=== PATIENT | male | born 1990 | race Caucasian/White ===

== ENCOUNTER 2017-04-12 13:24 | Emergency (ER) | payer MEDICAID ==
[~2017-04-12] VITALS: Ht 172.7 cm; Wt 70.0 kg
[~2017-04-12 13:24] MED LIST: CALA180L2 TOP; CHLO25CA10 PO; DIPH25CA83 PO; FAMO-128 PO; HYDR25CA PO; HYDR28CR14 TOP; LORA-269 PO; NO HOME MEDS; ZOF4T PO
[2017-04-12] MEDS ORDERED: ringers solution, lactated 1000ml IV soln IV ONE ×2 (14:00→14:40)
[2017-04-12] MEDS ORDERED: ondansetron/PF 4mg/2ml inj IV ONE (14:05)
[2017-04-12] MEDS ORDERED: LORazepam 2 mg/ml vial IV ONE ×2 (14:05→14:40)
[2017-04-12 14:11] LABS: BASOPHILS # (AUTO) 0.1 X10'3 (0-0.2); BASOPHILS % (AUTO) 1.4 % (0-1); EOSINOPHILS # (AUTO) 0.4 X10'3 (0-0.9); EOSINOPHILS % (AUTO) 7.2 % (0-6); HEMATOCRIT 45.9 % (42.0-52.0); HEMOGLOBIN 15.7 g/dl (14.0-17.9); LYMPHOCYTES # (AUTO) 1.3 X10'3 (1.1-4.8); LYMPHOCYTES % (AUTO) 23.1 % (21-51); MEAN CORPUSCULAR HEMOGLOBIN 30.5 PG (27.0-31.0); MEAN CORPUSCULAR HGB CONC 34.2 % (33.0-36.5); MEAN CORPUSCULAR VOLUME 89.1 FL (78-98); MEAN PLATELET VOLUME 7.5 FL (7.4-10.4); MONOCYTES # (AUTO) 0.4 X10'3 (0-0.9); MONOCYTES % (AUTO) 7.2 % (2-12); NEUTROPHILS # (AUTO) 3.5 X10'3 (1.8-7.7); NEUTROPHILS % (AUTO) 61.1 % (42-75); PLATELET COUNT 187 X10'3 (140-440); RED BLOOD COUNT 5.16 X10'6 (4.70-6.10); RED CELL DISTRIBUTION WIDTH 13.3 % (11.5-14.5); WHITE BLOOD COUNT 5.7 X10'3 (4.5-11.0)
[2017-04-12 14:18] LABS: PARTIAL THROMBOPLASTIN TIME 25 SECONDS (22-32); PROTHROMBIN TIME 10.2 SECONDS (9.0-12.0)
[2017-04-12 14:32] LABS: ALANINE AMINOTRANSFERASE 227 U/L (12-78); ALBUMIN 4.4 G/DL (3.4-5.0); ALKALINE PHOSPHATASE 86 IU/L (46-116); ANION GAP 12 (8-16); ASPARTATE AMINO TRANSFERASE 223 U/L (10-37); BILIRUBIN,TOTAL 0.7 MG/DL (0.1-1.0); BLOOD UREA NITROGEN 9 MG/DL (7-18); BUN/CREATININE RATIO 8.9 (5.4-32.0); CHLORIDE 100 MMOL/L (99-107); CREATININE 1.01 MG/DL (0.60-1.10); GLUCOSE 113 MG/DL (70-104); SODIUM 142 MMOL/L (135-145); TOTAL CARBON DIOXIDE 30.5 MMOL/L (24-32); eGFR 89 ML/MIN
[2017-04-12 14:46] LABS: MAGNESIUM 2.1 MG/DL (1.5-2.4)
[2017-04-12 15:48] LABS: CLARITY,URINE Clear (Clear); COLOR,URINE Yellow (Yellow); GLUCOSE, URINE Negative (Neg); KETONES,URINE Negative (Neg); LEUKOCYTE ESTERASE ,URINE Negative (Neg); NITRITES, URINE Negative (Neg); OCCULT BLOOD,URINE Negative (Neg); PH,URINE 8.5 (4.8-8.0); PROTEIN,URINE Negative (Neg)
[2017-04-12 15:50] LABS: UA COLLECTION TYPE URINAL
[2017-04-12 15:55] LABS: URINE AMPHETAMINE SCREEN NEGATIVE (Neg); URINE BARBITUATE SCREEN NEGATIVE (Neg); URINE BENZODIAZEPINES SCREEN NEGATIVE (Neg); URINE CANNABINOID SCREEN POSITIVE (Neg); URINE COCAINE SCREEN NEGATIVE (Neg); URINE METHADONE SCREEN NEGATIVE (Neg); URINE OPIATE SCREEN NEGATIVE (Neg); URINE PHENCYCLIDINE SCREEN NEGATIVE (Neg)
[2017-04-12] MEDS ORDERED: ONDA4TAB6 PO (16:42)
[2017-04-12] MEDS ORDERED: CHLO25CA10 PO (16:42)
[2017-04-12 16:56] VITALS: BP 133/59
== END 2017-04-12 16:58 | disposition home or self-care (01) ==
LOC: ER 13:25
DX: F10.230 Alcohol dependence with withdrawal, uncomplicated (principal); F12.10 Cannabis abuse, uncomplicated; Z56.0 Unemployment, unspecified; Y90.9 Presence of alcohol in blood, level not specified
CPT/HCPCS: 36415; 71045; 80053; 80305; 80320; 81003; 83605; 83735; 84145; 84484; 85025; 85610; 85730; 87040; 93005; 96361; 96374; 96375; 96376; 99285; J2060; J2405; J7120

== ENCOUNTER 2017-05-27 16:35 | Emergency (ER) | payer MEDICAID ==
[~2017-05-27] VITALS: Ht 172.7 cm; Wt 81.8 kg
[~2017-05-27 16:35] MED LIST changes: +ONDA4TAB6 PO
[2017-05-27] MEDS ORDERED: phenobarbital inj 260 MG in normal saline 100ml IV soln 99 ML IV STA (16:42)
[2017-05-27] MEDS ORDERED: thiamine 100mg tablet PO ONE (16:45)
[2017-05-27] MEDS ORDERED: magnesium oxide 400mg tablet PO ONE (16:45)
[2017-05-27] MEDS ORDERED: ondansetron/PF 4mg/2ml inj IV ONE (16:45)
[2017-05-27] MEDS ORDERED: normal saline 1000ML IV soln IVB ONE ×2 (16:45→20:30)
[2017-05-27 16:59] LABS: BASOPHILS # (AUTO) 0.1 X10'3 (0-0.2); BASOPHILS % (AUTO) 1.2 % (0-1); EOSINOPHILS # (AUTO) 0.5 X10'3 (0-0.9); EOSINOPHILS % (AUTO) 5.8 % (0-6); HEMATOCRIT 40.8 % (42.0-52.0); HEMOGLOBIN 14.4 g/dl (14.0-17.9); LYMPHOCYTES # (AUTO) 2.6 X10'3 (1.1-4.8); LYMPHOCYTES % (AUTO) 27.3 % (21-51); MEAN CORPUSCULAR HEMOGLOBIN 31.4 PG (27.0-31.0); MEAN CORPUSCULAR HGB CONC 35.4 % (33.0-36.5); MEAN CORPUSCULAR VOLUME 88.8 FL (78-98); MEAN PLATELET VOLUME 7.3 FL (7.4-10.4); MONOCYTES # (AUTO) 0.6 X10'3 (0-0.9); NEUTROPHILS # (AUTO) 5.6 X10'3 (1.8-7.7); NEUTROPHILS % (AUTO) 59.7 % (42-75); PLATELET COUNT 284 X10'3 (140-440); RED BLOOD COUNT 4.59 X10'6 (4.70-6.10); RED CELL DISTRIBUTION WIDTH 15.2 % (11.5-14.5); WHITE BLOOD COUNT 9.4 X10'3 (4.5-11.0)
[2017-05-27 17:23] LABS: ALANINE AMINOTRANSFERASE 45 U/L (12-78); ALBUMIN 4.4 G/DL (3.4-5.0); ALBUMIN/GLOBULIN RATIO 1.3 (1.1-1.5); ALKALINE PHOSPHATASE 71 IU/L (46-116); ANION GAP 14 (8-16); ASPARTATE AMINO TRANSFERASE 51 U/L (10-37); BILIRUBIN,TOTAL 0.9 MG/DL (0.1-1.0); BLOOD UREA NITROGEN 17 MG/DL (7-18); BUN/CREATININE RATIO 17.5 (5.4-32.0); CALCIUM 9.1 MG/DL (8.5-10.1); CHLORIDE 103 MMOL/L (99-107); CREATININE 0.97 MG/DL (0.60-1.10); ETHANOL 0.128 GM/DL (0.0-0.010); GLUCOSE 104 MG/DL (70-104); MAGNESIUM 1.8 MG/DL (1.5-2.4); POTASSIUM 3.8 MMOL/L (3.5-5.1); SODIUM 142 MMOL/L (135-145); TOTAL CARBON DIOXIDE 25.1 MMOL/L (24-32); TOTAL PROTEIN 7.9 G/DL (6.4-8.2); eGFR > 90 ML/MIN
[2017-05-27] MEDS ORDERED: phenobarbital inj 130 MG in normal saline 100ml IV soln 99 ML IV ONE (19:20)
[2017-05-27] MEDS ORDERED: phenobarbital inj 130 MG in normal saline 100ml IV soln 99 ML IV STA (20:27)
[2017-05-27 20:45] LABS: D-DIMER 0.56 MG/L FEU (0-0.50)
[2017-05-27 22:02] VITALS: BP 113/59
== END 2017-05-27 22:03 | disposition home or self-care (01) ==
LOC: ER 16:36
DX: F10.129 Alcohol abuse with intoxication, unspecified (principal); F12.10 Cannabis abuse, uncomplicated; Z56.0 Unemployment, unspecified; Z79.899 Other long term (current) drug therapy; Y90.0 Blood alcohol level of less than 20 mg/100 ml
CPT/HCPCS: 36415; 80053; 80320; 83735; 85025; 85379; 93005; 96365; 96366; 96375; 99285; J2405; J2560; J7030

== ENCOUNTER 2017-11-15 14:21 | Emergency (ER) | payer MEDICAID ==
[~2017-11-15] VITALS: Ht 172.7 cm; Wt 81.8 kg
[2017-11-15] MEDS ORDERED: PENI250T2 PO (15:34)
[2017-11-15] MEDS ORDERED: HYDR-4353 PO (15:34)
[2017-11-15 16:00] VITALS: BP 135/98
== END 2017-11-15 16:02 | disposition home or self-care (01) ==
LOC: ER 14:21
DX: K04.7 Periapical abscess without sinus (principal); F12.90 Cannabis use, unspecified, uncomplicated; Z56.0 Unemployment, unspecified; Z79.899 Other long term (current) drug therapy
CPT/HCPCS: 99283

== ENCOUNTER 2018-02-14 11:18 | Emergency (ER) | payer MEDICAID ==
[~2018-02-14] VITALS: Ht 170.2 cm; Wt 81.2 kg
[2018-02-14 12:46] LABS: BASOPHILS # (AUTO) 0.1 X10'3 (0-0.2); BASOPHILS % (AUTO) 0.7 % (0-1); EOSINOPHILS % (AUTO) 0.1 % (0-6); HEMATOCRIT 45.7 % (42.0-52.0); HEMOGLOBIN 15.1 g/dl (14.0-17.9); LYMPHOCYTES # (AUTO) 1.1 X10'3 (1.1-4.8); LYMPHOCYTES % (AUTO) 12.8 % (21-51); MEAN CORPUSCULAR HEMOGLOBIN 31.2 PG (27.0-31.0); MEAN CORPUSCULAR HGB CONC 33.2 % (33.0-36.5); MEAN CORPUSCULAR VOLUME 94.1 FL (78-98); MONOCYTES # (AUTO) 0.3 X10'3 (0-0.9); MONOCYTES % (AUTO) 3.9 % (2-12); NEUTROPHILS # (AUTO) 6.8 X10'3 (1.8-7.7); NEUTROPHILS % (AUTO) 82.5 % (42-75); PLATELET COUNT 267 X10'3 (140-440); RED BLOOD COUNT 4.86 X10'6 (4.70-6.10); RED CELL DISTRIBUTION WIDTH 13.8 % (11.5-14.5); WHITE BLOOD COUNT 8.3 X10'3 (4.5-11.0)
[2018-02-14 12:47] LABS: CLARITY,URINE CLEAR (Clear); COLOR,URINE YELLOW (Yellow); GLUCOSE, URINE NEGATIVE (Neg); KETONES,URINE 15 mg/dl (Neg); LEUKOCYTE ESTERASE ,URINE NEGATIVE (Neg); NITRITES, URINE NEGATIVE (Neg); OCCULT BLOOD,URINE TRACE-INTACT (Neg); PROTEIN,URINE 30 mg/dl (Neg)
[2018-02-14 12:57] LABS: UA COLLECTION TYPE CLN CATCH MIDSTREAM
[2018-02-14 12:58] LABS: MUCUS STRANDS MODERATE /LPF (Neg); SQUAMOUS EPITHELIAL CELL,UR MODERATE /LPF (FEW)
[2018-02-14 12:59] LABS: BACTERIA,URINE 1+ /HPF (Neg); RBC,URINE 0-2 /HPF (0-2); WBC,URINE 0-4 /HPF (0-4)
[2018-02-14 13:05] LABS: ALANINE AMINOTRANSFERASE 53 U/L (12-78); ALBUMIN 4.9 G/DL (3.4-5.0); ALBUMIN/GLOBULIN RATIO 1.3 (1.1-1.5); ALKALINE PHOSPHATASE 60 IU/L (46-116); ANION GAP 15 (8-16); ASPARTATE AMINO TRANSFERASE 45 U/L (10-37); BILIRUBIN,TOTAL 2.1 MG/DL (0.1-1.0); BLOOD UREA NITROGEN 17 MG/DL (7-18); BUN/CREATININE RATIO 17.2 (5.4-32.0); CALCIUM 8.8 MG/DL (8.5-10.1); CHLORIDE 92 MMOL/L (99-107); CREATININE 0.99 MG/DL (0.60-1.10); GLUCOSE 98 MG/DL (70-104); LIPASE 161 U/L (73-393); POTASSIUM 4.1 MMOL/L (3.5-5.1); SODIUM 132 MMOL/L (135-145); TOTAL CARBON DIOXIDE 24.6 MMOL/L (24-32); TOTAL PROTEIN 8.7 G/DL (6.4-8.2); eGFR > 90 ML/MIN
[2018-02-14 13:06] LABS: INR 1.2 INR; PROTHROMBIN TIME 11.7 SECONDS (9.0-12.0)
[2018-02-14] MEDS ORDERED: chlordiazePOXIDE 25mg capsule PO ONE (13:40)
[2018-02-14] MEDS ORDERED: LORazepam 2 mg/ml vial IV ONE ×2 (13:40→14:50)
[2018-02-14] MEDS ORDERED: normal saline 1000ML IV soln IVB ONE ×2 (13:40→14:50)
--- NOTE | 2018-02-14 13:58 | NUR ---
PT IS 27 YO MALE C/O MUSCLE ACHES, +NAUSEA, FEELING BLOATED, TREMORS, GOING THROUGH ETOH WITHDRAWAL, LAST DRINK WAS LAST NIGHT, DRINKING 2-3 PINTS A DAY FOR THE PAST 2 WEEKS "TRYING TO TAPER OFF...LAST NIGHT I HAD 1/2 PINT", PT IS GCS 15, ALERT, CALM AND COOPERATIVE, SLIGHT TREMORS TO HANDS, RESP EVEN AND UNLABORED, SKIN P/W/D, 1ST LITER NS INFUSING
[2018-02-14] MEDS ORDERED: CHLO25CA10 PO (14:48)
[2018-02-14 16:01] VITALS: BP 108/60
== END 2018-02-14 16:03 | disposition home or self-care (01) ==
LOC: ER 11:19
DX: F10.239 Alcohol dependence with withdrawal, unspecified (principal); F41.9 Anxiety disorder, unspecified; F32.9 Major depressive disorder, single episode, unspecified; F12.90 Cannabis use, unspecified, uncomplicated; Z56.0 Unemployment, unspecified
CPT/HCPCS: 36415; 80053; 81001; 83690; 85025; 85610; 96374; 96376; 99283; J2060; J7030; 96361

== ENCOUNTER 2018-03-16 18:48 | Emergency (ER) | payer MEDICAID ==
[~2018-03-16] VITALS: Ht 172.7 cm; Wt 64.1 kg
[~2018-03-16 18:48] MED LIST changes: -CALA180L2 TOP; -DIPH25CA83 PO; -FAMO-128 PO; -HYDR25CA PO; -HYDR28CR14 TOP; -LORA-269 PO; -NO HOME MEDS; -ONDA4TAB6 PO; -ZOF4T PO
[2018-03-16] MEDS ORDERED: LORazepam 2 mg/ml vial IV ONE (20:40)
[2018-03-16] MEDS ORDERED: normal saline 1000ML IV soln IVB ONE (20:40)
[2018-03-16] MEDS ORDERED: IBUP-1984 PO (20:47)
[2018-03-16] MEDS ORDERED: MELA5TAB12 PO (20:47)
[2018-03-16] MEDS ORDERED: GABA600T13 PO (20:47)
[2018-03-16 20:58] LABS: BASOPHILS # (AUTO) 0.1 X10'3 (0-0.2); BASOPHILS % (AUTO) 0.7 % (0-1); EOSINOPHILS # (AUTO) 0.1 X10'3 (0-0.9); EOSINOPHILS % (AUTO) 0.7 % (0-6); HEMATOCRIT 42.4 % (42.0-52.0); HEMOGLOBIN 14.8 g/dl (14.0-17.9); LYMPHOCYTES # (AUTO) 1.3 X10'3 (1.1-4.8); LYMPHOCYTES % (AUTO) 12.6 % (21-51); MEAN CORPUSCULAR HEMOGLOBIN 32.4 PG (27.0-31.0); MEAN CORPUSCULAR HGB CONC 34.8 g/dL (33.0-36.5); MEAN CORPUSCULAR VOLUME 93.1 FL (78-98); MEAN PLATELET VOLUME 7.7 FL (7.4-10.4); MONOCYTES # (AUTO) 0.6 X10'3 (0-0.9); MONOCYTES % (AUTO) 5.7 % (2-12); NEUTROPHILS # (AUTO) 8.6 X10'3 (1.8-7.7); NEUTROPHILS % (AUTO) 80.3 % (42-75); PLATELET COUNT 202 X10'3 (140-440); RED BLOOD COUNT 4.56 X10'6 (4.70-6.10); RED CELL DISTRIBUTION WIDTH 13.8 % (11.5-14.5); WHITE BLOOD COUNT 10.7 X10'3 (4.5-11.0)
[2018-03-16 21:10] LABS: ALANINE AMINOTRANSFERASE 31 U/L (12-78); ALBUMIN 4.5 G/DL (3.4-5.0); ALBUMIN/GLOBULIN RATIO 1.2 (1.1-1.5); ALKALINE PHOSPHATASE 58 IU/L (46-116); ANION GAP 18 (8-16); ASPARTATE AMINO TRANSFERASE 37 U/L (10-37); BILIRUBIN,TOTAL 1.3 MG/DL (0.1-1.0); BLOOD UREA NITROGEN 12 MG/DL (7-18); BUN/CREATININE RATIO 12.8 (5.4-32.0); CALCIUM 8.8 MG/DL (8.5-10.1); CHLORIDE 93 MMOL/L (99-107); CREATININE 0.94 MG/DL (0.60-1.10); ETHANOL 0.117 GM/DL (0.0-0.010); GLUCOSE 110 MG/DL (70-104); SODIUM 137 MMOL/L (135-145); TOTAL CARBON DIOXIDE 26.5 MMOL/L (24-32); TOTAL PROTEIN 8.2 G/DL (6.4-8.2); eGFR > 90 ML/MIN
[2018-03-16] MEDS ORDERED: potassium Cl 20 mEq SR tablet PO ONE (21:15)
[2018-03-16] MEDS ORDERED: CHLO25CA10 PO (21:28)
[2018-03-16 21:29] VITALS: BP 129/45
[2018-03-16] MEDS ORDERED: metoclopramide 5 mg/ml inj IV ONE (21:45)
== END 2018-03-16 21:57 | disposition home or self-care (01) ==
LOC: ER 18:50
DX: F10.239 Alcohol dependence with withdrawal, unspecified (principal); Y90.9 Presence of alcohol in blood, level not specified; R42 Dizziness and giddiness; R41.0 Disorientation, unspecified; F12.90 Cannabis use, unspecified, uncomplicated; Z79.899 Other long term (current) drug therapy; Z56.0 Unemployment, unspecified
CPT/HCPCS: 36415; 80053; 80320; 85025; 96361; 96374; 96375; 99283; J2060; J2765; J7030

== ENCOUNTER 2018-05-30 19:10 | Emergency (ER) | payer MEDICAID ==
[~2018-05-30] VITALS: Ht 172.7 cm; Wt 66.3 kg
[~2018-05-30 19:10] MED LIST changes: +GABA600T13 PO; +IBUP-1984 PO; +MELA5TAB12 PO
[2018-05-30] MEDS ORDERED: CHLO1CAP PO (20:27)
[2018-05-30] MEDS ORDERED: LORazepam 1 MG tablet PO ONE (20:30)
[2018-05-30 20:43] VITALS: BP 133/96
== END 2018-05-30 20:44 | disposition home or self-care (01) ==
LOC: ER 19:11
DX: F10.239 Alcohol dependence with withdrawal, unspecified (principal); F12.90 Cannabis use, unspecified, uncomplicated; Z56.0 Unemployment, unspecified; Z79.899 Other long term (current) drug therapy; Y90.9 Presence of alcohol in blood, level not specified
CPT/HCPCS: 93005; 99283

== ENCOUNTER 2018-08-17 11:41 | Emergency (ER) | payer MEDICAID ==
[~2018-08-17] VITALS: Ht 172.7 cm; Wt 80.7 kg
[~2018-08-17 11:41] MED LIST changes: +CHLO1CAP PO
[2018-08-17] MEDS ORDERED: normal saline 1000ML IV soln IVB ONE (15:40)
[2018-08-17] MEDS ORDERED: LORazepam 1 MG tablet PO ONE ×2 (15:40→18:25)
[2018-08-17] MEDS ORDERED: ondansetron 4mg rapidly disintigrating tab PO ONE (15:40)
[2018-08-17] MEDS ORDERED: thiamine 100mg/ml 2ml inj. IV ONE (15:40)
[2018-08-17 16:09] LABS: BASOPHILS % (AUTO) 0.2 % (0-1); EOSINOPHILS % (AUTO) 0.6 % (0-6); HEMATOCRIT 45.6 % (42.0-52.0); HEMOGLOBIN 15.4 g/dl (14.0-17.9); LYMPHOCYTES # (AUTO) 1.6 X10'3 (1.1-4.8); LYMPHOCYTES % (AUTO) 24.9 % (21-51); MEAN CORPUSCULAR HEMOGLOBIN 32.5 PG (27.0-31.0); MEAN CORPUSCULAR HGB CONC 33.7 g/dL (33.0-36.5); MEAN CORPUSCULAR VOLUME 96.3 FL (78-98); MEAN PLATELET VOLUME 8.4 FL (7.4-10.4); MONOCYTES # (AUTO) 0.5 X10'3 (0-0.9); NEUTROPHILS # (AUTO) 4.2 X10'3 (1.8-7.7); NEUTROPHILS % (AUTO) 66.3 % (42-75); PLATELET COUNT 233 X10'3 (140-440); RED BLOOD COUNT 4.73 X10'6 (4.70-6.10); RED CELL DISTRIBUTION WIDTH 13.2 % (11.5-14.5); WHITE BLOOD COUNT 6.4 X10'3 (4.5-11.0)
[2018-08-17 16:45] VITALS: BP 125/59
[2018-08-17] MEDS ORDERED: dicyclomine 10 MG capsule PO ONE (16:45)
[2018-08-17] MEDS ORDERED: famotidine 10mg tablet PO STA (16:45)
[2018-08-17] MEDS ORDERED: famotidine 20mg tablet PO ONE (16:55)
[2018-08-17 17:12] LABS: ALANINE AMINOTRANSFERASE 46 U/L (12-78); ALBUMIN 4.2 G/DL (3.4-5.0); ALBUMIN/GLOBULIN RATIO 1.3 (1.1-1.5); ALKALINE PHOSPHATASE 56 IU/L (46-116); ANION GAP 16 (8-16); ASPARTATE AMINO TRANSFERASE 52 U/L (10-37); BILIRUBIN,TOTAL 0.9 MG/DL (0.1-1.0); BLOOD UREA NITROGEN 11 MG/DL (7-18); BUN/CREATININE RATIO 14.7 (5.4-32.0); CALCIUM 8.1 MG/DL (8.5-10.1); CHLORIDE 100 MMOL/L (99-107); CREATININE 0.75 MG/DL (0.60-1.10); GLUCOSE 74 MG/DL (70-104); POTASSIUM 3.6 MMOL/L (3.5-5.1); SODIUM 139 MMOL/L (135-145); TOTAL PROTEIN 7.4 G/DL (6.4-8.2); eGFR > 90 ML/MIN
[2018-08-17] MEDS ORDERED: HYDR-3686 PO (18:14)
[2018-08-17] MEDS ORDERED: ONDA4TAB6 PO (18:14)
[2018-08-17] MEDS ORDERED: DICY10CA88 PO (18:19)
== END 2018-08-17 18:44 | disposition home or self-care (01) ==
LOC: ER 11:41
DX: F10.239 Alcohol dependence with withdrawal, unspecified (principal); R10.84 Generalized abdominal pain; R11.2 Nausea with vomiting, unspecified; R41.0 Disorientation, unspecified; R42 Dizziness and giddiness; F43.10 Post-traumatic stress disorder, unspecified; G89.29 Other chronic pain; F41.9 Anxiety disorder, unspecified; F32.9 Major depressive disorder, single episode, unspecified; F12.90 Cannabis use, unspecified, uncomplicated; Z56.0 Unemployment, unspecified; Z79.899 Other long term (current) drug therapy; Y90.9 Presence of alcohol in blood, level not specified
CPT/HCPCS: 36415; 80053; 85025; 96361; 96374; 99284; J2405; J3411; J7030

== ENCOUNTER 2018-09-12 20:03 | Emergency (ER) | payer MEDICAID ==
[~2018-09-12] VITALS: Ht 172.7 cm; Wt 81.8 kg
[~2018-09-12 20:03] MED LIST changes: +DICY10CA88 PO; +ONDA4TAB6 PO
[2018-09-12 20:10] VITALS: BP 113/83
[2018-09-12] MEDS ORDERED: HYDR-3965 PO (21:23)
[2018-09-12] MEDS ORDERED: AMOX500C2 PO (21:23)
[2018-09-12] MEDS ORDERED: HYDROcodone/acetaminophen 5mg/325mg tablet PO ONE (21:30)
== END 2018-09-12 21:46 | disposition home or self-care (01) ==
LOC: ER 20:05
DX: K08.89 Other specified disorders of teeth and supporting structures (principal); G89.29 Other chronic pain; F41.9 Anxiety disorder, unspecified; F32.9 Major depressive disorder, single episode, unspecified; F10.10 Alcohol abuse, uncomplicated; F12.90 Cannabis use, unspecified, uncomplicated; Z56.0 Unemployment, unspecified; Z79.899 Other long term (current) drug therapy; Y90.9 Presence of alcohol in blood, level not specified
CPT/HCPCS: 99283

== ENCOUNTER 2018-09-15 20:52 | Emergency (ER) | payer MEDICAID ==
[~2018-09-15] VITALS: Ht 172.7 cm; Wt 80.6 kg
[~2018-09-15 20:52] MED LIST changes: +AMOX500C2 PO; +HYDR-3965 PO
[2018-09-15] MEDS ORDERED: diphenhydrAMINE 50 mg/ml inj IV ONE (21:15)
[2018-09-15] MEDS ORDERED: normal saline 1000ML IV soln IVB STA (21:15)
[2018-09-15] MEDS ORDERED: famotidine/PF 10 mg/ml inj IV ONE (21:15)
[2018-09-15 21:36] LABS: EOSINOPHILS # (AUTO) 0.1 X10'3 (0-0.9); LYMPHOCYTES # (AUTO) 2.2 X10'3 (1.1-4.8); MEAN CORPUSCULAR HGB CONC 34.3 g/dL (33.0-36.5); NEUTROPHILS # (AUTO) 2.5 X10'3 (1.8-7.7); PLATELET COUNT 295 X10'3 (140-440)
[2018-09-15 21:37] LABS: BASOPHILS # (AUTO) 0.1 X10'3 (0-0.2); BASOPHILS % (AUTO) 2.7 % (0-1); HEMATOCRIT 43.1 % (42.0-52.0); HEMOGLOBIN 14.8 g/dl (14.0-17.9); LYMPHOCYTES % (AUTO) 39.6 % (21-51); MEAN CORPUSCULAR VOLUME 96.4 FL (78-98); MEAN PLATELET VOLUME 7.7 FL (7.4-10.4); MONOCYTES # (AUTO) 0.6 X10'3 (0-0.9); NEUTROPHILS % (AUTO) 45.7 % (42-75); RED BLOOD COUNT 4.47 X10'6 (4.70-6.10); RED CELL DISTRIBUTION WIDTH 13.9 % (11.5-14.5); WHITE BLOOD COUNT 5.5 X10'3 (4.5-11.0)
[2018-09-15 21:46] LABS: ALANINE AMINOTRANSFERASE 40 U/L (12-78); ALBUMIN 4.4 G/DL (3.4-5.0); ALBUMIN/GLOBULIN RATIO 1.3 (1.1-1.5); ALKALINE PHOSPHATASE 56 IU/L (46-116); ANION GAP 14 (8-16); ASPARTATE AMINO TRANSFERASE 45 U/L (10-37); BILIRUBIN,TOTAL 1.5 MG/DL (0.1-1.0); BLOOD UREA NITROGEN 7 MG/DL (7-18); BUN/CREATININE RATIO 7.2 (5.4-32.0); CALCIUM 8.6 MG/DL (8.5-10.1); CHLORIDE 98 MMOL/L (99-107); CREATININE 0.97 MG/DL (0.60-1.10); ETHANOL 0.054 GM/DL (0.0-0.010); GLUCOSE 97 MG/DL (70-104); MAGNESIUM 1.5 MG/DL (1.5-2.4); POTASSIUM 3.4 MMOL/L (3.5-5.1); SODIUM 139 MMOL/L (135-145); TOTAL CARBON DIOXIDE 27.5 MMOL/L (24-32); TOTAL PROTEIN 7.9 G/DL (6.4-8.2); eGFR > 90 ML/MIN
[2018-09-15] MEDS ORDERED: chlordiazePOXIDE 25mg capsule PO ONE (22:10)
[2018-09-15] MEDS ORDERED: [UNRECOGNIZED DRUG - CODE] PO (22:10)
[2018-09-15] MEDS ORDERED: DIPH25CA83 PO (22:10)
[2018-09-15 22:13] VITALS: BP 122/80
--- NOTE | 2018-09-15 22:17 | NUR ---
MD BLACKWELL AWARE OF PT TREMORS AND HEARTRATE AT DISCHARGE.
[2018-09-15] MEDS: chlordiazePOXIDE 25mg capsule PO ONE ×2 (22:19→22:22)
== END 2018-09-15 22:25 | disposition home or self-care (01) ==
LOC: ER 20:54
DX: T78.40XA Allergy, unspecified, initial encounter (principal); K08.89 Other specified disorders of teeth and supporting structures; J02.9 Acute pharyngitis, unspecified; F10.239 Alcohol dependence with withdrawal, unspecified; G89.29 Other chronic pain; F41.9 Anxiety disorder, unspecified; F32.9 Major depressive disorder, single episode, unspecified; F12.90 Cannabis use, unspecified, uncomplicated; Z56.0 Unemployment, unspecified; Z79.899 Other long term (current) drug therapy; X58.XXXA Exposure to other specified factors, initial encounter; Y93.89 Activity, other specified; Y92.89 Other specified places as the place of occurrence of the external cause; Y99.8 Other external cause status; Y90.0 Blood alcohol level of less than 20 mg/100 ml
CPT/HCPCS: 36415; 80053; 80320; 83605; 83735; 85025; 87040; 96374; 96375; 99283; J1200; J3490; J7030

== ENCOUNTER 2020-02-01 15:13 | Emergency (ER) | payer MEDICAID ==
[~2020-02-01 15:13] MED LIST changes: -AMOX500C2 PO; +CYCL-1 PO; +DIPH25CA83 PO; -HYDR-3965 PO; +NAPR-56 PO
== END 2020-02-01 16:38 | disposition left against medical advice (07) ==
LOC: ER 15:14
DX: M54.5 Low back pain (principal); Z53.21 Procedure and treatment not carried out due to patient leaving prior to being seen by health care provider

== ENCOUNTER 2020-02-13 10:20 | Emergency (ER) | payer MEDICAID ==
[~2020-02-13] VITALS: Ht 172.7 cm; Wt 91.0 kg
[2020-02-13 12:21] VITALS: BP 122/88
[2020-02-13] MEDS ORDERED: oxyCODONE IR 5mg (immed. release) tablet PO ONE (12:35)
[2020-02-13] MEDS ORDERED: HYDR-4353 PO (13:44)
== END 2020-02-13 13:57 | disposition home or self-care (01) ==
LOC: ER 10:22
DX: S22.20XA Unspecified fracture of sternum, initial encounter for closed fracture (principal); S00.81XA Abrasion of other part of head, initial encounter; R07.89 Other chest pain; G89.29 Other chronic pain; F41.9 Anxiety disorder, unspecified; F32.9 Major depressive disorder, single episode, unspecified; F12.90 Cannabis use, unspecified, uncomplicated; Z72.89 Other problems related to lifestyle; Z56.0 Unemployment, unspecified; Z88.1 Allergy status to other antibiotic agents; Z79.899 Other long term (current) drug therapy; V89.2XXA Person injured in unspecified motor-vehicle accident, traffic, initial encounter; Y93.89 Activity, other specified; Y92.89 Other specified places as the place of occurrence of the external cause; Y99.8 Other external cause status
CPT/HCPCS: 71120; 99283

== ENCOUNTER 2020-02-15 17:03 | Emergency (ER) | payer MEDICAID ==
[~2020-02-15] VITALS: Ht 172.7 cm; Wt 90.9 kg
[~2020-02-15 17:03] MED LIST changes: +HYDR-4353 PO
[2020-02-15 17:21] VITALS: BP 138/102
== END 2020-02-15 18:09 | disposition left against medical advice (07) ==
LOC: ER 17:05
DX: R06.02 Shortness of breath (principal); Z53.21 Procedure and treatment not carried out due to patient leaving prior to being seen by health care provider

== ENCOUNTER 2020-03-13 01:00 | Emergency (ER) | payer MEDICAID ==
[~2020-03-13] VITALS: Ht 172.7 cm; Wt 93.2 kg
[~2020-03-13 01:00] MED LIST changes: -HYDR-4353 PO; -NAPR-56 PO
[2020-03-13] MEDS ORDERED: magnesium oxide 400mg tablet PO ONE (01:50)
[2020-03-13] MEDS ORDERED: thiamine 100mg tablet PO ONE (01:50)
[2020-03-13] MEDS ORDERED: phenobarbital inj 260 MG in normal saline 100ml IV soln 100 ML IV ONE (01:50)
[2020-03-13] MEDS ORDERED: normal saline 1000ML IV soln IVB ONE (01:50)
[2020-03-13] MEDS ORDERED: phenobarbital inj 260 MG in normal saline 100ml IV soln 98 ML IV ONE (02:00)
[2020-03-13 02:28] LABS: BASOPHILS # (AUTO) 0.1 X10'3 (0-0.2); BASOPHILS % (AUTO) 1.2 % (0-1); EOSINOPHILS # (AUTO) 0.4 X10'3 (0-0.9); EOSINOPHILS % (AUTO) 4.6 % (0-6); HEMATOCRIT 40.6 % (42.0-52.0); HEMOGLOBIN 14.1 g/dl (14.0-17.9); LYMPHOCYTES # (AUTO) 2.6 X10'3 (1.1-4.8); LYMPHOCYTES % (AUTO) 33.5 % (21-51); MEAN CORPUSCULAR HEMOGLOBIN 30.6 PG (27.0-31.0); MEAN CORPUSCULAR HGB CONC 34.7 g/dL (33.0-36.5); MEAN CORPUSCULAR VOLUME 88.3 FL (78-98); MEAN PLATELET VOLUME 7.7 FL (7.4-10.4); MONOCYTES # (AUTO) 0.6 X10'3 (0-0.9); MONOCYTES % (AUTO) 8.2 % (2-12); NEUTROPHILS # (AUTO) 4.1 X10'3 (1.8-7.7); NEUTROPHILS % (AUTO) 52.5 % (42-75); PLATELET COUNT 200 X10'3 (140-440); RED CELL DISTRIBUTION WIDTH 12.8 % (11.5-14.5); WHITE BLOOD COUNT 7.8 X10'3 (4.5-11.0)
[2020-03-13 02:43] LABS: ANION GAP 9 (8-16); BLOOD UREA NITROGEN 22 MG/DL (7-18); BUN/CREATININE RATIO 19.1 (5.4-32.0); CALCIUM 7.8 MG/DL (8.5-10.1); CHLORIDE 97 MMOL/L (99-107); CREATININE 1.15 MG/DL (0.60-1.10); GLUCOSE 104 MG/DL (70-104); POTASSIUM 3.3 MMOL/L (3.5-5.1); SODIUM 134 MMOL/L (135-145); TOTAL CARBON DIOXIDE 28.1 MMOL/L (24-32); eGFR 75 ML/MIN
[2020-03-13 02:44] LABS: ALANINE AMINOTRANSFERASE 37 U/L (12-78); ALBUMIN/GLOBULIN RATIO 1.1 (1.1-1.5); ALKALINE PHOSPHATASE 86 IU/L (46-116); ASPARTATE AMINO TRANSFERASE 46 U/L (10-37); BILIRUBIN,TOTAL 1.2 MG/DL (0.1-1.0); ETHANOL < 0.010 GM/DL (0.0-0.010); MAGNESIUM 1.6 MG/DL (1.5-2.4); TOTAL PROTEIN 7.5 G/DL (6.4-8.2)
[2020-03-13] MEDS ORDERED: phenobarbital inj 130 MG in normal saline 100ml IV soln 100 ML IV ONE (03:15)
[2020-03-13] MEDS ORDERED: phenobarbital inj 130 MG in normal saline 100ml IV soln 99 ML IV ONE (03:20)
--- NOTE | 2020-03-13 03:43 | NUR ---
2nd dose of Phenobarbital ivpb infusing now. Pt is a&ox4 and cooperative. Reports pain to his sternum 8 out of 10 and abd pain of 3 out of 10. Reports he is used to this pain now. Current vss.
[2020-03-13 04:30] VITALS: BP 123/84
== END 2020-03-13 04:39 | disposition home or self-care (01) ==
LOC: ER 01:01
DX: F10.239 Alcohol dependence with withdrawal, unspecified (principal); G89.29 Other chronic pain; F41.9 Anxiety disorder, unspecified; F12.90 Cannabis use, unspecified, uncomplicated; F32.9 Major depressive disorder, single episode, unspecified; Z72.89 Other problems related to lifestyle; Z56.0 Unemployment, unspecified; Z88.1 Allergy status to other antibiotic agents; Z79.899 Other long term (current) drug therapy; Y90.0 Blood alcohol level of less than 20 mg/100 ml
CPT/HCPCS: 36415; 80053; 80320; 82948; 83735; 85025; 93005; 96365; 96366; 99284; J2560; J7030

== ENCOUNTER 2020-08-05 21:51 | Emergency (ER) | payer MEDICAID ==
[~2020-08-05] VITALS: Ht 172.7 cm; Wt 96.6 kg
[2020-08-05] MEDS ORDERED: pregabalin 75mg capsule PO ONE (23:35)
[2020-08-05] MEDS ORDERED: chlordiazePOXIDE 25mg capsule PO ONE (23:35)
[2020-08-05] MEDS ORDERED: gabapentin 300mg capsule PO ONE (23:35)
[2020-08-05] MEDS ORDERED: gabapentin 100mg capsule PO ONE (23:35)
[2020-08-05] MEDS ORDERED: GABA-534 PO (23:51)
[2020-08-06 00:17] VITALS: BP 132/90
== END 2020-08-06 00:29 | disposition home or self-care (01) ==
LOC: ER 21:52
DX: F10.239 Alcohol dependence with withdrawal, unspecified (principal); F41.9 Anxiety disorder, unspecified; R25.1 Tremor, unspecified; E86.0 Dehydration; R19.7 Diarrhea, unspecified; G89.29 Other chronic pain; F32.9 Major depressive disorder, single episode, unspecified; F12.90 Cannabis use, unspecified, uncomplicated; Z72.89 Other problems related to lifestyle; Z56.0 Unemployment, unspecified; Z88.1 Allergy status to other antibiotic agents; Z79.899 Other long term (current) drug therapy; Y90.9 Presence of alcohol in blood, level not specified
CPT/HCPCS: 99284

== ENCOUNTER 2020-08-06 10:23 | Emergency (ER) | payer MEDICAID ==
[~2020-08-06] VITALS: Ht 172.7 cm; Wt 91.8 kg
[~2020-08-06 10:23] MED LIST changes: +GABA-534 PO
[2020-08-06] MEDS ORDERED: thiamine 100mg tablet PO ONE (11:05)
[2020-08-06] MEDS ORDERED: LORazepam 2 mg/ml vial IV ONE (11:05)
[2020-08-06] MEDS ORDERED: normal saline 1000ml 1,000 ML IV ONE (11:05)
[2020-08-06] MEDS ORDERED: ondansetron/PF 4mg/2ml inj IV ONE (11:05)
[2020-08-06 11:44] VITALS: BP 149/88
[2020-08-06 11:52] LABS: ALANINE AMINOTRANSFERASE 56 U/L (12-78); ALBUMIN 4.5 G/DL (3.4-5.0); ALBUMIN/GLOBULIN RATIO 1.3 (1.1-1.5); ALKALINE PHOSPHATASE 57 IU/L (46-116); ANION GAP 12 (8-16); ASPARTATE AMINO TRANSFERASE 62 U/L (10-37); BILIRUBIN,TOTAL 2.1 MG/DL (0.1-1.0); BLOOD UREA NITROGEN 9 MG/DL (7-18); BUN/CREATININE RATIO 10.2 (5.4-32.0); CALCIUM 8.3 MG/DL (8.5-10.1); CHLORIDE 98 MMOL/L (99-107); CREATININE 0.88 MG/DL (0.60-1.10); GLUCOSE 88 MG/DL (70-104); POTASSIUM 3.5 MMOL/L (3.5-5.1); SODIUM 136 MMOL/L (135-145); TOTAL CARBON DIOXIDE 26.3 MMOL/L (24-32); TOTAL PROTEIN 8.1 G/DL (6.4-8.2); eGFR > 90 ML/MIN
[2020-08-06 11:59] LABS: ETHANOL < 0.010 GM/DL (0.0-0.010)
[2020-08-06] MEDS ORDERED: iohexol 300mg/ml 100ml inj. ONE (12:30)
[2020-08-06 12:55] LABS: LIPASE 184 U/L (73-393)
[2020-08-06 13:05] LABS: BASOPHILS # (AUTO) 0.1 X10'3 (0-0.2); EOSINOPHILS # (AUTO) 0.3 X10'3 (0-0.9); HEMATOCRIT 38.5 % (42.0-52.0); HEMOGLOBIN 13.1 g/dl (14.0-17.9); LYMPHOCYTES # (AUTO) 0.9 X10'3 (1.1-4.8); LYMPHOCYTES % (AUTO) 16.1 % (21-51); MEAN CORPUSCULAR HEMOGLOBIN 32.3 PG (27.0-31.0); MEAN CORPUSCULAR HGB CONC 33.9 g/dL (33.0-36.5); MEAN CORPUSCULAR VOLUME 95.3 FL (78-98); MONOCYTES # (AUTO) 0.3 X10'3 (0-0.9); MONOCYTES % (AUTO) 5.7 % (2-12); NEUTROPHILS # (AUTO) 4.1 X10'3 (1.8-7.7); NEUTROPHILS % (AUTO) 72.2 % (42-75); PLATELET COUNT 106 X10'3 (140-440); RED BLOOD COUNT 4.04 X10'6 (4.70-6.10); RED CELL DISTRIBUTION WIDTH 14.5 % (11.5-14.5); WHITE BLOOD COUNT 5.7 X10'3 (4.5-11.0)
[2020-08-06] MEDS ORDERED: mag hydrox/Alum hydrox/simeth 30ml oral suspension PO ONE (13:35)
[2020-08-06] MEDS ORDERED: chlordiazePOXIDE 25mg capsule PO ONE (13:35)
== END 2020-08-06 13:57 | disposition home or self-care (01) ==
LOC: ER 10:24
DX: F10.239 Alcohol dependence with withdrawal, unspecified (principal); R10.84 Generalized abdominal pain; F41.9 Anxiety disorder, unspecified; F32.9 Major depressive disorder, single episode, unspecified; F12.10 Cannabis abuse, uncomplicated; Z56.0 Unemployment, unspecified; Z88.1 Allergy status to other antibiotic agents; Y90.9 Presence of alcohol in blood, level not specified
CPT/HCPCS: 36415; 74177; 80053; 80320; 83690; 83735; 85025; 96361; 96374; 96375; 99285; J2060; J2405; J7030; Q9967; 74176; 96376

== ENCOUNTER 2021-07-03 14:15 | Emergency (ER) | payer MEDICAID ==
[~2021-07-03] VITALS: Ht 172.7 cm; Wt 104.5 kg
[2021-07-03 15:33] LABS: CLARITY,URINE CLEAR (Clear); COLOR,URINE YELLOW (Yellow); GLUCOSE, URINE NEGATIVE (Neg); KETONES,URINE NEGATIVE (Neg); LEUKOCYTE ESTERASE ,URINE NEGATIVE (Neg); NITRITES, URINE NEGATIVE (Neg); OCCULT BLOOD,URINE NEGATIVE (Neg); PROTEIN,URINE NEGATIVE (Neg); UROBILINOGEN,URINE 0.2 E.U/dL (0.2-1.0)
[2021-07-03 15:35] LABS: BASOPHILS # (AUTO) 0.1 X10'3 (0-0.2); BASOPHILS % (AUTO) 1.2 % (0-1); EOSINOPHILS % (AUTO) 0.8 % (0-6); HEMATOCRIT 41.7 % (42.0-52.0); HEMOGLOBIN 14.6 g/dl (14.0-17.9); LYMPHOCYTES # (AUTO) 2.4 X10'3 (1.1-4.8); LYMPHOCYTES % (AUTO) 38.5 % (21-51); MEAN CORPUSCULAR HEMOGLOBIN 30.4 PG (27.0-31.0); MEAN CORPUSCULAR HGB CONC 34.9 g/dL (33.0-36.5); MEAN PLATELET VOLUME 7.7 FL (7.4-10.4); MONOCYTES # (AUTO) 0.4 X10'3 (0-0.9); MONOCYTES % (AUTO) 7.1 % (2-12); NEUTROPHILS # (AUTO) 3.3 X10'3 (1.8-7.7); NEUTROPHILS % (AUTO) 52.4 % (42-75); PLATELET COUNT 290 X10'3 (140-440); RED CELL DISTRIBUTION WIDTH 12.6 % (11.5-14.5); WHITE BLOOD COUNT 6.2 X10'3 (4.5-11.0)
[2021-07-03 15:36] LABS: UA COLLECTION TYPE VOIDED
[2021-07-03 15:40] LABS: ALANINE AMINOTRANSFERASE 54 U/L (12-78); ALBUMIN 4.2 G/DL (3.4-5.0); ALBUMIN/GLOBULIN RATIO 1.3 (1.1-1.5); ALKALINE PHOSPHATASE 76 IU/L (46-116); ANION GAP 14 (8-16); ASPARTATE AMINO TRANSFERASE 48 U/L (10-37); BILIRUBIN,TOTAL 1.1 MG/DL (0.1-1.0); BLOOD UREA NITROGEN 9 MG/DL (7-18); BUN/CREATININE RATIO 10.6 (5.4-32.0); CALCIUM 8.5 MG/DL (8.5-10.1); CHLORIDE 99 MMOL/L (99-107); CREATININE 0.85 MG/DL (0.60-1.10); GLUCOSE 110 MG/DL (70-104); LIPASE 73 U/L (73-393); POTASSIUM 3.4 MMOL/L (3.5-5.1); SODIUM 141 MMOL/L (135-145); TOTAL CARBON DIOXIDE 27.7 MMOL/L (24-32); TOTAL PROTEIN 7.5 G/DL (6.4-8.2); eGFR > 90 ML/MIN
[2021-07-03] MEDS ORDERED: LORazepam 2 mg/ml vial IV ONE (19:05)
[2021-07-03] MEDS ORDERED: normal saline 1000ML IV soln IVB ONE (19:05)
[2021-07-03] MEDS ORDERED: morphine 4 MG/ML inj SYRINge IV ONE (19:05)
[2021-07-03 19:34] LABS: CHOL/HDL RATIO 2.4 (0.00-4.99); CHOLESTEROL 173 MG/DL (0-200); ETHANOL 0.094 GM/DL (0.0-0.010); HDL CHOLESTEROL 72 MG/DL (35-60); LDL CHOLESTEROL 89 MG/DL (50-100); TRIGLYCERIDES 91 MG/DL (20-135)
[2021-07-03] MEDS ORDERED: LORA-269 PO (20:38)
[2021-07-03] MEDS ORDERED: GABA-534 PO (20:48)
[2021-07-03 21:02] VITALS: BP 115/98
== END 2021-07-03 21:03 | disposition home or self-care (01) ==
LOC: ER 14:16
DX: S93.402A Sprain of unspecified ligament of left ankle, initial encounter (principal); F10.230 Alcohol dependence with withdrawal, uncomplicated; R10.9 Unspecified abdominal pain; G89.29 Other chronic pain; M54.9 Dorsalgia, unspecified; F41.9 Anxiety disorder, unspecified; F32.A Depression, unspecified; F12.10 Cannabis abuse, uncomplicated; Z56.0 Unemployment, unspecified; Z88.1 Allergy status to other antibiotic agents; Z79.899 Other long term (current) drug therapy; X50.0XXA Overexertion from strenuous movement or load, initial encounter; Y93.89 Activity, other specified; Y92.89 Other specified places as the place of occurrence of the external cause; Y99.8 Other external cause status
CPT/HCPCS: 36415; 71045; 73610; 74176; 80053; 80061; 80320; 81003; 83690; 84484; 85025; 96374; 96375; 99285; J2060; J2270; J7030

== ENCOUNTER 2024-12-23 12:18 | Inpatient (IN) | payer MEDICAID ==
[~2024-12-23] VITALS: Ht 172.7 cm; Wt 89.9 kg
[~2024-12-23 12:18] MED LIST changes: +GABA-1405 PO; -GABA-534 PO; +GABA-535 PO; -GABA600T13 PO
--- NOTE | 2024-12-23 12:36 | Physician Documentation ---
History of Present Illness General Chief Complaint: Back Pain Stated Complaint: PAIN IN BUTTOX GOING DOWN INTO LEGS Time Seen by MD: 12:35 Primary Medical Doctor: ARIAN LEONG History of Present Illness Initial Comments The patient is a 34-year-old male presents to the emergency department with back pain and difficulty ambulating. Patient states he did a work job on Monday he states he commonly gets back pain after doing his work. The patient states he felt like he was sore yesterday, he states he developed some difficulty ambulating with a an unsteady gait shortly after doing the job on Monday night which was two days ago.. The patient has no other history of being unsteady when he ambulates in the past. He denies any trauma. The patient states he has had chronic back pain but he has never had this level of weakness and unsteadiness he also complains of pain in his buttocks he states the buttocks pain is the worst 8/10 he states he has had constipation he has not had any bowel incontinence or bladder incontinence. The patient states he occasionally drinks he states he drank two drinks last night. Medication Reconciliation Allergies: Coded Allergies: doxycycline (Verified Allergy, Severe, THROAT SWELLING, 12/23/24) Scheduled Dicyclomine Hcl* (Bentyl*), 1 CAP PO TID Famotidine (Famotidine), 1 TAB PO DAILY, (Reported) Ibuprofen* (Motrin*), 1 TAB PO Q6H PRN, (Reported) Miscellaneous Medications Ibuprofen (Ibuprofen), (Reported) Discontinued Medications Chlordiazepoxide Hcl (Librium), 25 MG PO DIRECTED Discontinued Reason: patient no longer taking Chlordiazepoxide/Clidinium Br (Librax Capsule), 1 CAP PO Q8H PRN for for anxiety/agitation Discontinued Reason: patient no longer taking Cyclobenzaprine* (Cyclobenzaprine*), 1 TAB PO HS Discontinued Reason: patient no longer taking Diphenhydramine Hcl (Benadryl), 25 MG PO TID PRN PRN for allergies Discontinued Reason: patient no longer taking Gabapentin (Gabapentin), 1,200 MG PO BID, (Reported) Discontinued Reason: patient no longer taking Gabapentin (Gabapentin), 1 CAP PO as directed Discontinued Reason: patient no longer taking Gabapentin (Gabapentin), 1 CAP PO BID Discontinued Reason: patient no longer taking Melatonin (Melatonin), 5 MG PO HSPRN PRN for sleep, (Reported) Discontinued Reason: patient no longer taking Ondansetron Hcl (Zofran), 1 TAB PO Q8H Discontinued Reason: patient no longer taking Past Medical History Past Medical History: Gastritis, Chronic Back Pain, *PSYCH*, Anxiety, Depression Past Surgical History: noncontributory, orthopedic surgeries Smoking: Cigarettes Alcohol Use: Alcoholic Drug Use: marijuana Lives with: Mother Lives In: Home Occupation: unemployed Physical Exam Physical Exam Vital Signs: Temperature: 98.5, Source: Oral, Heart Rate: 117, Respiratory Rate: 16, BP: 142/91, Pulse Oximetry: 100, Weight: 89.900 Oxygen Flow Rate: 0 Physical Exam VITALS: Reviewed and as above. GENERAL: Alert, no apparent distress. HEENT: Normocephalic, atraumatic, PERRL, EOMI, dry mucosa, no erythema RESPIRATORY: Lungs clear, normal breath sounds, no respiratory distress. CHEST: No accessory muscle use, no retractions CV: Regular rate, rhythm, no edema, no murmur, No: JVD GI: Soft, non-tender, bowels sounds present, no rebound, guarding, or rigidity BACK: No CVA tenderness, or swelling MUSCULOSKELETAL: No deformities, no edema SKIN: Warm and dry, no rash NEURO: Oriented x4, patient has a ataxia on [id number] testing, he also has a shuffling ataxic gait. His upper and lower motor strength are 5/5 he has no upper extremity ataxia or abnormal cerebellar testing patient has 3+ patellar reflexes bilaterally PSYCH: Normal mood and affect, no agitation Progress Results/Orders Results/Orders Orders - OHLMILAGROS DANEILS MD Vitamin B12 (12/23/24 13:00) Eugenio Saenz Prov.Neuro Consult (12/23/24 13:06) Page Hospitalist (12/23/24 ) Completed Orders - OHMILAGROS WHEAT MD Cbc/Diff (12/23/24 12:53) Urinalysis, Cult If Indicated (12/23/24 12:53) Normal Saline 1000ml (0.9% Sodium Chlori (12/23/24 12:55) BMP (12/23/24 12:53) Syphilis Screen Poc (12/23/24 13:01) Ketorolac Trometh 15mg/Ml Vial (Toradol (12/23/24 13:10) CK (12/23/24 13:22) C-Reactive Protein (12/23/24 13:22) Vital Signs 12/23/24 12/23/24 12/23/24 12/23/24 12:20 13:43 13:56 14:22 Temp 98.5 97.6 Pulse 117 76 Resp 16 18 20 18 B/P (MAP) 142/91 139/86 (103) Pulse Ox 100 99 O2 Flow Rate 0 0 Laboratory Tests Test 12/23/24 13:22 White Blood Count 6.3 Red Blood Count 4.64 L Hemoglobin 14.0 Hematocrit 40.8 L Mean Corpuscular Volume 87.9 Mean Corpuscular Hemoglobin 30.2 Mean Corpuscular Hemoglobin Concent 34.3 Red Cell Distribution Width 13.8 Platelet Count 294 Mean Platelet Volume 7.8 Neutrophils (%) (Auto) 59.5 Lymphocytes (%) (Auto) 28.6 Monocytes (%) (Auto) 6.2 Eosinophils (%) (Auto) 4.3 Basophils (%) (Auto) 1.4 H Neutrophils # (Auto) 3.8 Lymphocytes # (Auto) 1.8 Monocytes # (Auto) 0.4 Eosinophils # (Auto) 0.3 Basophils # (Auto) 0.1 CBC Comment Erythrocyte Sedimentation Rate 4 Sodium Level 140 Potassium Level 4.1 Chloride Level 103 Carbon Dioxide Level 27.5 Anion Gap 10 Blood Urea Nitrogen 9 Creatinine 0.78 Estimated GFR/1.73 m2 > 90 BUN/Creatinine Ratio 11.5 Glucose Level 100 Calcium Level 9.0 Total Creatine Kinase 139 C-Reactive Protein < 0.05 Albumin 4.3 Chemistry Comments Syphilis Serology Negative Medical Decision Making Additional information obtaine: old records Findings The patient presents with neurologic symptoms of gait instability and lower leg ataxia and hyperreflexia, the patient was seen by tele neurology, the patient was complaining of significant buttocks pain and a CPK was ordered but that was within normal limits. They tele neurologist his recommended MRIs imaging of the spine and of the brain as the differential is fairly wide at this point with the patient with new onset of gait ataxia. Labs were reviewed. Prior hospitalizations has been reviewed. Case has been discussed with the hospitalist as well as the neurologists. The patient's pulse oximetry was interpreted as normal Differential Diagnosis B12 deficiency, Guillain-Bud, encephalitis, myelitis, Departure Impression: Primary Impression: Gait disorder Additional Impression: Low back pain Qualified Codes: M54.50 - Low back pain, unspecified Referrals: NO PRIMARY CARE PROVIDER (PCP) Signature Scribe Signature: No scribe Attestation: The note accurately reflects work and decisions made by me.Milagros Araya MD 12/24/24 09:33 MILAGROS ARAYA MD Dec 23, 2024 12:36
[2024-12-23] MEDS: normal saline 1000ML IV soln IVB ONE (13:22)
[2024-12-23 13:31] LABS: MEAN PLATELET VOLUME 7.8 FL (7.4-10.4); RED CELL DISTRIBUTION WIDTH 13.8 % (11.5-14.5)
[2024-12-23 13:42] LABS: CREATININE 0.78 MG/DL (0.60-1.10); TOTAL CARBON DIOXIDE 27.5 MMOL/L (24-32); eCRCL 129 ML/MIN; eGFR > 90 ML/MIN
[2024-12-23] MEDS: ketorolac trometh 15mg/ml vial 15 MG/ML ML IV ONE (13:43)
--- NOTE | 2024-12-23 13:49 | CONSULTATION REPORT ---
History of Present Illness Providers to CC ~ Refering MD: ARIAN LEONG Allergies: Coded Allergies: doxycycline (Verified Allergy, Severe, THROAT SWELLING, 03/13/20) Home Medications Home Medications Active Gabapentin 400 Mg Capsule 1 Cap PO BID 15 Days Gabapentin 400 Mg Capsule 1 Cap PO DIRECTED 1 capsule 4 times a day on day #1, 1 capsule 3 times a day on day #2 1 capsule 2 times a day on day #3 1 capsule x1 on day #4 Cyclobenzaprine* (Cyclobenzaprine HCl) 10 Mg Tablet 1 Tab PO HS 30 Days Benadryl (Diphenhydramine Hcl) 25 Mg Capsule 25 Mg PO TID PRN PRN Bentyl* (Dicyclomine HCl) 10 Mg Capsule 1 Cap PO TID 5 Days Zofran (Ondansetron Hcl) 4 Mg Tablet 1 Tab PO Q8H 5 Days Librax Capsule (Chlordiazepoxide/Clidinium) 1 Each Capsule 1 Cap PO Q8H PRN 5 Days Librium (Chlordiazepoxide Hcl) 25 Mg Capsule 25 Mg PO DIRECTED Day 1: 50mg every 6 hours as needed for symptoms Day 2: 50mg every 8 hours as needed for symptoms Day 3: 50mg every 12 hours as needed for symptoms Day 4: 50mg every bedtime as needed for symptoms Do not drink Alcohol while taking this medication. Reported Motrin* (Ibuprofen) 400 Mg Tablet 1 Tab PO Q6H PRN 5 Days Melatonin 5 Mg Tab.rapdis 5 Mg PO HSPRN PRN Gabapentin 600 Mg Tablet 1,200 Mg PO BID 30 Days Physical Exam Last Vital Signs Recorded: Temperature: 98.5, Source: Oral, Heart Rate: 117, Respiratory Rate: 18, BP: 142/91, Pulse Oximetry: 100, Weight: 89.900 Results Diagram Lab Result Diagram: 12/23/24 1322 12/23/24 1322 Assessment/Plan Additional Plan [place] Neuro Note # Demographics Consult Type: General Neurology Patient Location: Emergency Room First Name: MICHELLE Last Name: JESSICA Date of : 1990 Age: 34 Gender: Male Facility: [facility] Time of Initial Page ( Time): 12/23/2024 13:14 First Contact with Site ( Time): 12/23/2024 13:14 # HPI Chief Complaint: - weakness (focal) History: 34 y/o M with hx of back pain who on Saturday had an episode of dizziness and ataxia. Patient reports trouble "making my legs do what I want them to do." No arm symptoms. Has pain in the muscles from his lower back through his mid-thigh. Muscles feel sore and weak. Is more sore than expected for his degree of activity. No neck symptoms. Sitting on a toilet causes too much pain in his gluteal muscles to sit. No associated rash. ED provider notes reflexes are brisk # Scores Time of exam and NIHSS ([place] Time): 12/23/2024 13:43 Level of Consciousness 1a: [0] = Alert; keenly responsive LOC Questions 1b: [0] = Answers both questions correctly LOC Commands 1c: [0] = Performs both tasks correctly Best Gaze 2: [0] = Normal Visual 3: [0] = No visual loss Facial Palsy 4: [0] = Normal symmetrical movements Motor Arm Left 5a: [0] = No drift Motor Arm Right 5b: [0] = No drift Motor Leg Left 6a: [0] = No drift Motor Leg Right 6b: [0] = No drift Limb Ataxia 7: [0] = Absent Sensory 8: [0] = Normal Best Language 9: [0] = No aphasia Dysarthria 10: [0] = Normal Extinction and Inattention 11: [0] = No abnormality NIHSS Total: 0 # Exam Cerebellar: HKS requires # PMH-FH-SH Past Medical History: IBS, GERD Medications: Famotidine # Assessment Impression: - Weakness Pain component favors myositis. 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 # Plan Thrombolytic/Intervention: NOT IV Thrombolysis or IA Intervention candidate Thrombolytic/Intraarterial Exclusion: - IV thrombolytic and IA intervention considered but not recommended as this patient's symptoms are not clinically consistent with an assumed diagnosis of stroke Other: - If patient has any neurological deterioration please call me back immediately - I have discussed my recommendations with the referring provider Additional Recommendations: Check CK level---if significantly elevated then would treat with SoluMedrol and IVF. If not elevated, then would need extensive brain and spine MRI studies. # Logistics Attestation of consult completion: The patient is located at: [facility]. Facility staff participated in the visit. I performed this telemedicine visit from my offsite office utilizing interactive 2 way audio and visual telecommunication technology at the request of the onsite emergency room provider. Total time spent in telemedicine encounter: I spent 15 minutes reviewing clinical data and/or imaging, obtaining history, examining the patient, communicating with the onsite care team, and in preparation of this report. # Demographics First Name: MICHELLE Last Name: JESSICA Facility: [facility] ISABELL DILLON MD Dec 23, 2024 13:49
[2024-12-23 13:55] LABS: SYPHILIS SCREENING TEST POC NEGATIVE (Negative)
[2024-12-23] MEDS ORDERED: HYDROcodone/acetaminophen 5mg/325mg tablet PO PRN (15:30)
[2024-12-23] MEDS ORDERED: magnesium sulf-water 2g/50mL 50 ML IV PRN (15:30)
[2024-12-23] MEDS ORDERED: potassium Cl 40MEQ/1/2NS 520ml 520 ML IV PRN (15:30)
[2024-12-23] MEDS ORDERED: magnesium hydroxide 30ml (MOM) UD suspension PO PRN (15:30)
[2024-12-23] MEDS ORDERED: potassium Cl 20 mEq SR tablet PO PRN ×2 (15:30)
[2024-12-23] MEDS ORDERED: magnesium Cl slow-release 64mg tablet PO PRN (15:30)
[2024-12-23] MEDS ORDERED: mag hydrox/Alum hydrox/simeth 30ml oral suspension PO PRN (15:30)
[2024-12-23] MEDS ORDERED: magnesium sulf-water 4G/100mL 100 ML IV PRN (15:30)
[2024-12-23] MEDS ORDERED: FAMO40TA86 PO (15:31)
[2024-12-23] MEDS ORDERED: IBUP-1986 PO (15:32)
[2024-12-23] MEDS: ondansetron/PF 4mg/2ml inj IV PRN (15:39)
--- NOTE | 2024-12-23 15:42 | HISTORY AND PHYSICAL-Residence ---
History & Physical Providers to CC Resident Creating Document: SILVIA LITIBURCIOWARNER, RES ~ History of Present Illness Primary Medical Doctor: ARIAN LEONG Reason for Admit\Complaint: Acute onset lower extremity weakness History of Present Illness This is a 34-year-old male with no significant previous medical history came to the ER with a sudden onset back pain and lower extremity weakness. 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 Later that evening after he is done with his work he tried to walk, felt heaviness in his legs and felt like his brain was not communicating with the his legs. Later on Monday he continued to have intolerable pain in his lower back, radiating to his gluteal and back of thighs bilaterally. He grades pain as 8/10 on rest increasing to 10/10 with movement. He also had an episode where he felt locking on his right toes for about 30 seconds. He also reported that for the last one week he was not able to feel his bladder filling and later suddenly feels the urge sometimes leading to accidents. Denies fecal incontinence. Denies any recent fever, sore throat. He has on and off diarrhea for the last one and half year, he is being evaluated for possible IBS. No history of IV drug abuse, not on anticoagulants. No history of back surgery. No known insect bites. Was an alcoholic previously, currently drinks occasionally, last drink was yesterday, had two drinks because of pain. No similar complaints in the past. No family history of neurological issues Allergies: Coded Allergies: doxycycline (Verified Allergy, Severe, THROAT SWELLING, 12/23/24) Home Medications Home Medications Active Gabapentin 400 Mg Capsule 1 Cap PO BID 15 Days Gabapentin 400 Mg Capsule 1 Cap PO DIRECTED 1 capsule 4 times a day on day #1, 1 capsule 3 times a day on day #2 1 capsule 2 times a day on day #3 1 capsule x1 on day #4 Cyclobenzaprine* (Cyclobenzaprine HCl) 10 Mg Tablet 1 Tab PO HS 30 Days Benadryl (Diphenhydramine Hcl) 25 Mg Capsule 25 Mg PO TID PRN PRN Bentyl* (Dicyclomine HCl) 10 Mg Capsule 1 Cap PO TID 5 Days Zofran (Ondansetron Hcl) 4 Mg Tablet 1 Tab PO Q8H 5 Days Librax Capsule (Chlordiazepoxide/Clidinium) 1 Each Capsule 1 Cap PO Q8H PRN 5 Days Librium (Chlordiazepoxide Hcl) 25 Mg Capsule 25 Mg PO DIRECTED Day 1: 50mg every 6 hours as needed for symptoms Day 2: 50mg every 8 hours as needed for symptoms Day 3: 50mg every 12 hours as needed for symptoms Day 4: 50mg every bedtime as needed for symptoms Do not drink Alcohol while taking this medication. Reported Motrin* (Ibuprofen) 400 Mg Tablet 1 Tab PO Q6H PRN 5 Days Melatonin 5 Mg Tab.rapdis 5 Mg PO HSPRN PRN Gabapentin 600 Mg Tablet 1,200 Mg PO BID 30 Days Past Medical History Past Medical History Past medical history. Past Surgical History Surgical History Comment Ankle surgery Past Social History Social History Comment Denies any smoking history Previously was an alcoholic, currently drinks occasionally Smokes marijuana No history of IV drug abuse Functionally independent Lives with his mom Smoking: Cigarettes Alcohol Use: Alcoholic Drug Use: Marijuana Lives with: Mother Lives In: Home Occupation: unemployed ROS Constitutional: Reports: weakness Eyes: Denies: no symptoms reported, see HPI, pain, discharge, blurred vision, double vision, itching, photophobia, redness, tearing, other ENT: Denies: no symptoms reported, see HPI, ear pain, ear bleeding, ear discharge, hearing loss, ear ringing, nose pain, nose bleeding, nose congestion, nose discharge, throat pain, throat swelling, voice change, mouth pain, mouth bleeding, mouth swelling, other Respiratory: Denies: no symptoms reported, see HPI, cough, orthopnea, shortness of breath, SOB with exertion, SOB at rest, stridor, wheezing, hemoptysis, pain with breathing, other Gastrointestinal: Denies: no symptoms reported, see HPI, abdomen distended, abdominal pain, nausea, vomiting, diarrhea, constipated, melena, hematemesis, hematochezia, rectal bleeding, rectal pain, dysphagia, poor appetite, poor fluid intake, other Genitourinary: Denies: no symptoms reported, see HPI, burning, discharge, dysuria, frequency, flank pain, hematuria, incontinence, pain, decreased urine output, urgency, other Neurological: Reports: see HPI Musculoskeletal: Denies: no symptoms reported, see HPI, pain, swelling, back pain, gout, joint pain, joint swelling, muscle pain, muscle swelling, muscle stiffness, neck pain, other Integumentary: Denies: no symptoms reported, see HPI, rash, itching, lesions, lumps, bruise(s), wound(s), laceration(s), dryness, change in color, other Exam Vitals: Vital Signs Date Time Temp Pulse Resp B/P (MAP) Pulse Ox O2 Delivery O2 Flow Rate FiO2 12/23/24 15:01 97.7 84 20 113/65 (81) 99 0 General: Alert, oriented, not in acute distress Head: Normocephalic with an atraumatic Eyes: Pupils- 3mm, reacting to light, conjunctiva- anicteric Nose and throat: No polyps, septum- normal, no mucosal ulcers Neck: Supple, no lymphadenopathy, no carotid bruit Respiratory: No use of accessory muscles of respiration, bilateral breath sounds are clear Cardiac: S1-S2 heard, rhythm regular, no gallop/murmur Abdomen: non distended, no tenderness, no organomegaly, bowel sounds - heard Extremities: no clubbing, no deformities, peripheral pulses - 2+ Skin: warm and dry, no rash, no purpura Neuro: Awake, alert, oriented Cranial nerves: Normal vision, normal ocular movements, normal facial sensation, no facial weakness, tongue protrusion normal, able to shrug shoulders, Motor Strength in bilateral upper extremity-5/5, no pronator drift Strength in right lower leg 4/5, strength in left lower leg 5/5, right lower leg appeared weaker on an overall compared to left leg, Weak dorsiflexion of right leg. Reflexes-bilateral biceps and triceps reflex normal, bilateral knee reflex brisk, 4+ Absent Babinski Cerebellar reflex-no dysdiadochokinesia, finger-nose test normal Gait-ataxic gait Straight leg raise test--pain at 45 degree for right leg, 60-70 degree for left leg Positive tenderness in the lower back, at the tailbone. Diagnostic Data Last Recorded Lab Results: 12/23/24 1322 12/23/24 1322 Advance Care Planning Advanced Care plannin - 30 Minutes (I spent 17 minutes in discussing various resuscitative measures, the patient chose to be full code.) Additional Plan Assessment This is a 34-year-old male with the acute onset lower back pain and bilateral lower extremity weakness. Plan Acute onset lower back pain with bilateral lower extremity weakness and brisk reflex Patient's presentation-acute lower back pain with bilateral lower extremity weakness Clinical examination-brisk knee jerk bilaterally, positive straight leg rest, ataxic gait No saddle anesthesia, Creatinine kinase in the normal range ESR ordered, CRP negative Syphilis serology negative, vitamin B12 pending Tele neuro consult done, lumbar spine MRI ordered. Pain management-morphine and [place]. Code status : Full code DVT prophylaxis: Heparin Diet: Regular diet Irma Li M.D PGY2 Date of Service: Dec 23, 2024 Billing Provider: DEEP DICK MD Common Visit Codes: [id number] INP/OBS CARE (HIGH) Secondary Visit Codes: [id number] CARE PLAN 30 MINUTES IRMA LI, RES Dec 23, 2024 15:42 DEEP DICK MD Dec 25, 2024 07:12
[2024-12-23 16:15] LABS: LEUKOCYTE ESTERASE ,URINE NEGATIVE (Neg); NITRITES, URINE NEGATIVE (Neg); OCCULT BLOOD,URINE NEGATIVE (Neg)
[2024-12-23 16:19] LABS: UA COLLECTION TYPE NON-SPECIFIED
--- NOTE | 2024-12-23 19:10 | RADIOLOGY REPORT ---
EXAM: MR MRI LUMBAR SPINE CLINICAL HISTORY: sudden onset back pain and lower extremity weakness COMPARISON: None Technique: MRI of the lumbar spine was performed without contrast. Findings: Vertebral body height is maintained. Vertebral alignment is anatomic. Vertebral marrow signal intensity is unremarkable. The conus medullaris is normal in position and signal intensity. L1-L2: No significant spinal canal or foraminal stenosis. L2-L3: No significant spinal canal or foraminal stenosis. L3-L4: No significant spinal canal or foraminal stenosis. L4-L5: Disc bulge with facet arthropathy. No significant spinal canal or foraminal stenosis. L5-S1: No significant spinal canal or foraminal stenosis. Incompletely evaluated disc bulge/ protrusion at T11-T12 level. No mass is identified within the lumbar spinal canal or paravertebral soft tissues. Apparent T1 isointense signal involving the CSF within the lumbar spinal canal, more hyperintense than expected. This is favored to be artifactual. The signal is unremarkable on T2 and STIR sequences. IMPRESSION: No significant spinal canal or foraminal stenosis in the lumbar spine with mild degenerative changes. Incompletely evaluated disc bulge/protrusion at T11-T12 level. Apparent T1 isointense signal involving the CSF within the lumbar spinal canal, more hyperintense than expected. This is favored to be artifactual. Consider repeat study if indicated.
[2024-12-23] MEDS: K and/or MAG REPLACEMENT MC SCH (19:43)
[2024-12-23] MEDS: HYDROcodone/acetaminophen 10/325mg tab PO PRN (19:49)
[2024-12-23] MEDS: docusate sod 100mg capsule PO SCH (19:49)
[2024-12-23] MEDS: heparin, porcine 5000 units/ml vial SQ SCH (19:50)
[2024-12-23 20:00] VITALS: RESP 19
[2024-12-23 21:00] VITALS: BP 125/74; PULSE 70; RESP 14; TEMP 97.9; O2SAT 99
[2024-12-24] VITALS (7 sets, daily range): BP systolic 109–124; BP diastolic 66–78; PULSE 7–96; RESP 13–18; TEMP 97.4–98.1; O2SAT 98–99
[2024-12-24 03:59] LABS: MEAN PLATELET VOLUME 7.7 FL (7.4-10.4); RED CELL DISTRIBUTION WIDTH 13.6 % (11.5-14.5)
[2024-12-24 04:11] LABS: CREATININE 0.98 MG/DL (0.60-1.10); TOTAL CARBON DIOXIDE 30.4 MMOL/L (24-32); eCRCL 103 ML/MIN; eGFR 88 ML/MIN
[2024-12-24] MEDS: diazepam inj 5 MG/ML inj. IV ONE (17:03)
--- NOTE | 2024-12-24 18:26 | PROGRESS NOTE- Residence ---
Progress Note - Resident Providers to CC Resident Creating Document: BRANDY LI RES ~ Antibiotic Timeout Antibiotic Ordered?: No Subjective Patient was seen and examined at the bedside today. Continues to have pain in the lower back. More weaker on the right side when compared to the left. Objective Vital Signs Date Time Temp Pulse Resp B/P (MAP) Pulse Ox O2 Delivery O2 Flow Rate FiO2 12/24/24 17:03 18 12/24/24 12:33 97.8 7 124/74 (91) 99 Room Air 12/23/24 17:00 0 Result Diagram: 12/24/24 0344 12/24/24 0344 Alert, oriented, not in acute distress Head: Normocephalic with an atraumatic Eyes: Pupils- 3mm, reacting to light, conjunctiva- anicteric Nose and throat: No polyps, septum- normal, no mucosal ulcers Neck: Supple, no lymphadenopathy, no carotid bruit Respiratory: No use of accessory muscles of respiration, bilateral breath sounds are clear Cardiac: S1-S2 heard, rhythm regular, no gallop/murmur Abdomen: non distended, no tenderness, no organomegaly, bowel sounds - heard Extremities: no clubbing, no deformities, peripheral pulses - 2+ Skin: warm and dry, no rash, no purpura Neuro: Awake, alert, oriented Cranial nerves: Normal vision, normal ocular movements, normal facial sensation, no facial weakness, tongue protrusion normal, able to shrug shoulders, Motor Strength in bilateral upper extremity-5/5, no pronator drift Strength in right lower leg 4/5, strength in left lower leg 5/5, right lower leg appeared weaker on an overall compared to left leg, Weak dorsiflexion of right leg. Reflexes-bilateral biceps and triceps reflex normal, bilateral knee reflex brisk, 4+ Absent Babinski Cerebellar reflex-no dysdiadochokinesia, finger-nose test normal Gait-ataxic gait Straight leg raise test--pain at 45 degree for right leg, 60-70 degree for left leg Positive tenderness in the lower back, at the tailbone. Plan Plan Assessment This is a 34-year-old male with the acute onset lower back pain and bilateral lower extremity weakness. Plan Acute onset lower back pain with bilateral lower extremity weakness and brisk reflex Patient's presentation-acute lower back pain with bilateral lower extremity weakness Clinical examination-brisk knee jerk bilaterally, positive straight leg rest, ataxic gait No saddle anesthesia, Creatinine kinase in the normal range ESR ordered, CRP negative Syphilis serology negative, vitamin B12 pending Tele neuro consult done Lumbar spine MRI showed no significant spinal or foraminal stenosis in the lumbar spine with mild degenerative changes. Incompletely evaluated disc bulge/protrusion at T11-T12 level. Apparent T1 isointense signal involving the CSF with in the lumbar spinal level, more hyperintense than expected. This is favored to be artifact. MRI head, C-spine, thoracic spine ordered for further evaluation Pain management-morphine and [place]. Code status : Full code DVT prophylaxis: Heparin Diet: Regular diet Brandy Li M.D PGY2 Date of Service: Dec 24, 2024 Billing Provider: DEEP DICK MD Common Visit Codes: [id number] INP/OBS CARE(HIGH) BRANDY LI, RES Dec 24, 2024 18:26 DEEP DICK MD Dec 25, 2024 07:13
--- NOTE | 2024-12-24 20:35 | RADIOLOGY REPORT ---
MRI BRAIN WITH AND WITHOUT CONTRAST Indication: leg weakness Comparison: None Technique: MRI of the brain was performed with and without intravenous contrast. 15 CC OF INTRAVENOUS CONTRAST was administered intravenously. Findings: No abnormal signal is visualized within the brain parenchyma. The ventricles and sulci are normal in size and configuration for the patient's age. There is no evidence of mass, recent hemorrhage, midline shift or abnormal extra-axial fluid collection. There is no abnormal enhancement of the brain or meninges. The major intracranial vessels retain normal flow-voids consistent with their patency. Trace mucosal thickening of the paranasal sinuses. Mastoid air cells are clear. IMPRESSION: NO ACUTE INTRACRANIAL PROCESS.
[2024-12-24] MEDS ORDERED: GADOTERATE MEGLUMINE 7.5 MMOL/15 ML VIAL IV ONE (20:37)
--- NOTE | 2024-12-24 20:38 | RADIOLOGY REPORT ---
EXAM: MR MRI C SPINE WITH AND WITHOUT CONTRAST CLINICAL HISTORY: leg weakness COMPARISON: None Technique: MRI of the cervical spine was performed WITH AND without contrast. Findings: Vertebral body height is preserved. Vertebral body alignment is within normal limits. Vertebral marrow signal is essentially normal. No spinal cord edema. No abnormal enhancement within the spinal canal. C2-3: No significant spinal canal or foraminal stenosis. C3-4: No significant spinal canal or foraminal stenosis. C4-5: No significant spinal canal or foraminal stenosis. C5-6: No significant spinal canal or foraminal stenosis. C6-7: Disc bulge with uncovertebral hypertrophy. Moderate right foraminal narrowing. No significant spinal canal narrowing. C7-T1: No significant spinal canal or foraminal stenosis. The paraspinal tissues are unremarkable. IMPRESSION: Moderate right foraminal narrowing at C6- No significant spinal canal narrowing.
--- NOTE | 2024-12-24 20:43 | RADIOLOGY REPORT ---
EXAM: MR MRI THORACIC SPINE with and without contrast CLINICAL HISTORY: leg weakness COMPARISON: None Technique: MRI of the thoracic spine was performed with and without contrast. Findings: Vertebral body height is maintained. Vertebral alignment is anatomic. Vertebral marrow signal intensity is unremarkable. The spinal cord has a normal caliber and signal intensity. No abnormal enhancement within spinal canal. Degenerative changes of the thoracic spine with small left subarticular zone protrusion at T11-T12 level. No significant spinal canal or foraminal stenosis. No mass is identified within the paraspinal soft tissues. IMPRESSION: No evidence of acute fracture or malalignment of the thoracic spine. No abnormal enhancement within the spinal canal. Disc protrusion at T11-T12 level. No significant spinal canal or foraminal stenosis.
[2024-12-25 05:42] LABS: MEAN PLATELET VOLUME 8.3 FL (7.4-10.4); RED CELL DISTRIBUTION WIDTH 13.9 % (11.5-14.5)
[2024-12-25 06:07] LABS: CREATININE 0.74 MG/DL (0.60-1.10); TOTAL CARBON DIOXIDE 27.7 MMOL/L (24-32); eCRCL 136 ML/MIN; eGFR > 90 ML/MIN
[2024-12-25 06:45] VITALS: BP 122/88; PULSE 76; RESP 13; TEMP 97.2; O2SAT 99
[2024-12-25 10:43] VITALS: BP 127/87; PULSE 80; RESP 16; TEMP 97.5; O2SAT 99
[2024-12-25] MEDS ORDERED: HYDR-3965 PO (11:51)
--- NOTE | 2024-12-25 14:31 | DISCHARGE SUMMARY-Residence ---
Discharge Summary Providers to CC Resident Creating Document: BRANDY RAMSAY RES ~ Discharge Summary Admission Diagnosis: lower extremity weakness Hospital Course DATE OF ADMISSION: 12/23/2024 DATE OF DISCHARGE: 12/25/2024 Labs at the time of discharge Hemoglobin 13.9 ESR 4, CRP< 0.05 Sodium 140 Potassium 3.9 Creatinine 0.74 Vitamin B12 256 MRI head No acute intracranial process Cervical spine MRI Moderate right foraminal narrowing at C6- No significant spinal canal narrowing. , Thoracic spine MRI No evidence of acute fracture or malalignment of the thoracic spine. No abnormal enhancement within the spinal canal. Disc protrusion at T11-T12 level. No significant spinal canal or foraminal stenosis. Lumbar spine MRI No significant spinal canal or foraminal stenosis in the lumbar spine with mild degenerative changes. Incompletely evaluated disc bulge/protrusion at T11-T12 level. Apparent T1 isointense signal involving the CSF within the lumbar spinal canal, more hyperintense than expected. This is favored to be artifactual. Consider repeat study if indicated. Discharge Diagnosis\Comment: Acute onset back pain with bilateral lower weakness R>L which could be possibly secondary to nerve compression Operations\Procedures: None Consultants: Tele neuro Complications: None Condition on DC: Stable New Medications: Hydrocodone Bit/Acetaminophen 5/325 MG ([place] 5/325 MG) 5 Mg/325 Mg Tablet 1 TAB PO Q6H PRN for pain, #14 TAB Discharge Summary: HPI This is a 34-year-old male with no significant previous medical history came to the ER with a sudden onset back pain and lower extremity weakness. On Monday he was working on [employer], he was mostly on his knees while working, he tried to get up in the middle of the work and felt some dizziness and pain in his lower back but he continued to work. Later that evening after he is done with his work he tried to walk, felt heaviness in his legs and felt like his brain was not communicating with the his legs. Later on Monday he continued to have intolerable pain in his lower back, radiating to his gluteal and back of thighs bilaterally. He grades pain as 8/10 on rest increasing to 10/10 with movement. He also had an episode where he felt locking on his right toes for about 30 seconds. Denies fecal incontinence. Denies any recent fever, sore throat. He has on and off diarrhea for the last one and half year, he is being evaluated for possible IBS. No history of IV drug abuse, not on anticoagulants. No history of back surgery. No known insect bites. Was an alcoholic previously, currently drinks occasionally, last drink was yesterday, had two drinks because of pain. No similar complaints in the past. No family history of neurological issues. On examination, positive neurological findings include 3+ bilateral knee reflexes, positive straight leg raising test. Abnormal gait No cranial nerve deficits, normal sensations, no paresthesias, strength 5/5 in bilateral lower extremities but slight weakness in right lower extremity. Hospital course Patient's pain has been controlled with oral [place]. Tele neuro consult has been done, recommended MRI of the spine and head. Head MRA showed no acute intracranial process. Cervical, thoracic, lumbar spine MRI showed moderate right foraminal narrowing at L6, Disc protrusion at T11-T12 level. No significant spinal canal or foraminal stenosis. On 1st day of admission patient was not able to walk on the 2nd day of admission patient was able to walk without assistance. This could be likely secondary to now compression due to prolonged strain on the back. At the time of discharge patient is stable. Physical examination at the time of discharge Alert, oriented, not in acute distress Head: Normocephalic with an atraumatic Eyes: Pupils- 3mm, reacting to light, conjunctiva- anicteric Nose and throat: No polyps, septum- normal, no mucosal ulcers Neck: Supple, no lymphadenopathy, no carotid bruit Respiratory: No use of accessory muscles of respiration, bilateral breath sounds are clear Cardiac: S1-S2 heard, rhythm regular, no gallop/murmur Abdomen: non distended, no tenderness, no organomegaly, bowel sounds - heard Extremities: no clubbing, no deformities, peripheral pulses - 2+ Skin: warm and dry, no rash, no purpura Neuro: Awake, alert, oriented Cranial nerves: Normal vision, normal ocular movements, normal facial sensation, no facial weakness, tongue protrusion normal, able to shrug shoulders, Motor Strength in bilateral upper extremity-5/5, no pronator drift Strength in right lower leg 4/5, strength in left lower leg 5/5, right lower leg appeared weaker on an overall compared to left leg, Weak dorsiflexion of right leg. Reflexes-bilateral biceps and triceps reflex normal, bilateral knee reflex brisk, 3+ Absent Babinski Cerebellar reflex-no dysdiadochokinesia, finger-nose test normal Gait-ataxic gait Straight leg raise test--pain at 45 degree for right leg, 60-70 degree for left leg Discharge medications [place] 5 q.6 PRN Ibuprofen PRN Discharge instructions Follow up with PCP in2 weeks. Continue to take pain medications. Follow up with a nuerologist in case of no improvement in pain and weakness. Call 911 or return to ER in case of acute onset ofw weakness, loss of speech or any stroke like symptoms *Problems/Diagnosis: (1) Low back pain Status: Acute (2) Gait disorder Status: Acute Total Time Spent on D/C: > 30 Minutes Date of Service: Dec 25, 2024 Billing Provider: DEEP DICK MD Common Visit Codes: 98305-FUV/OBS DISCH DAY >30min Problem Qualifiers (1) Low back pain: Chronicity: acute Back pain laterality: unspecified Sciatica presence: without sciatica Qualified Codes: M54.50 - Low back pain, unspecified BRANDY RAMSAY, RES Dec 25, 2024 14:19 DEEP DICK MD Dec 26, 2024 08:15
== END 2024-12-25 13:45 | disposition home or self-care (01) | DRG 48 ==
LOC: ER 12:18 → ED HOLD 14:42 → SUR 3N 18:10
PROVIDERS: ADMIT Internal Medicine; ATTEND Internal Medicine
DX: G58.8 Other specified mononeuropathies (principal); F32.A Depression, unspecified; S39.012A Strain of muscle, fascia and tendon of lower back, initial encounter; F41.9 Anxiety disorder, unspecified; R53.1 Weakness; K21.9 Gastro-esophageal reflux disease without esophagitis; K58.9 Irritable bowel syndrome, unspecified; X58.XXXA Exposure to other specified factors, initial encounter; Y93.89 Activity, other specified; Y92.89 Other specified places as the place of occurrence of the external cause; Y99.8 Other external cause status; Z79.899 Other long term (current) drug therapy; Z88.1 Allergy status to other antibiotic agents; Z87.891 Personal history of nicotine dependence
CPT/HCPCS: 36415; 70553; 72148; 72156; 72157; 80048; 81003; 82550; 82607; 83735; 85025; 85651; 86140; 87081; 96361; 96374; 99285; G0378; J1644; J1885; J2270; J2405; J3360; J7030

== ENCOUNTER 2025-01-15 08:42 | Emergency (ER) | payer MEDICAID ==
[~2025-01-15] VITALS: Ht 172.7 cm; Wt 91.0 kg
[~2025-01-15 08:42] MED LIST changes: -CHLO1CAP PO; -CHLO25CA10 PO; -CYCL-1 PO; -DIPH25CA83 PO; +FAMO40TA86 PO; -GABA-1405 PO; -GABA-535 PO; +HYDR-3965 PO; -IBUP-1984 PO; +IBUP-1986 PO; -MELA5TAB12 PO; -ONDA4TAB6 PO
[2025-01-15 08:58] VITALS: TEMP 98.5
[2025-01-15] MEDS ORDERED: GABA-530 PO (09:02)
[2025-01-15] MEDS: dexamethasone sod phosphate 10mg/ml inj PO STA (09:25)
[2025-01-15] MEDS: ketorolac trometh 30MG/ML vial 30 MG/ML VIAL IM ONE (09:26)
[2025-01-15 10:00] VITALS: PULSE 85
[2025-01-15] MEDS: oxyCODONE IR 5mg (immed. release) tablet PO ONE (10:02)
--- NOTE | 2025-01-15 11:08 | Physician Documentation ---
History of Present Illness ~ Chief Complaint: Back Pain Stated Complaint: BACK PAIN Time Seen by MD: 08:46 Primary Medical Doctor: ARIAN LEONG Mode of Arrival: EMS, Stretcher HPI 34 year old male with repeat visit for RLE back pain that he describes as starting in his buttock and radiating down the back of his R leg to the knee. Reports difficulty walking because of the pain, denies bowel incontinence. Reports some numbness and tingling distally. Has been seen here for same, has M RI of brain/spine on file with no acute explanation for his symptoms. Denies fever, IV drug use, N/V/D. Medication Reconciliation Allergies: Coded Allergies: doxycycline (Verified Allergy, Severe, THROAT SWELLING, 12/23/24) Scheduled Dicyclomine Hcl* (Bentyl*), 1 CAP PO TID Famotidine (Famotidine), 1 TAB PO DAILY, (Reported) Gabapentin (Gabapentin), 3 CAP PO Q8H, (Reported) Scheduled PRN Ibuprofen (Ibuprofen), 1 TAB PO Q6H PRN for pain, (Reported) Discontinued Medications Hydrocodone Bit/Acetaminophen 5/325 MG ([place] 5/325 MG), 1 TAB PO Q6H PRN for pain Discontinued Reason: patient no longer taking Past Medical History Past Medical History: Gastritis, Chronic Back Pain, *PSYCH*, Anxiety, Depression Past Surgical History: noncontributory, orthopedic surgeries Patient History: Patient reports no known family medical history. Alcohol Use: Alcoholic Drug Use: marijuana Lives with: Mother Lives In: Home Occupation: unemployed Review of Systems All Other Systems at this time: Reviewed and Negative Physical Exam Physical Exam Vital Signs: RN Vital Signs have been reviewed: Yes, Temperature: 98.5, Source: Oral, Heart Rate: 85, Respiratory Rate: 20, BP: 119/80, Pulse Oximetry: 97, Weight: 91.000 Oxygen Flow Rate: 0 Physical Exam General-tearful HEENT-atraumatic normocephalic, neck supple without elevated JVD, no thyromegaly or carotid bruit. No lymphadenopathy bilaterally. Chest-decreased breath sounds to auscultation bilaterally over lung bases with mild crackles, breathing nonlabored no tachypnea, no wheezing, Heart-S1-S2 normal, regular heart rate no murmur Abdomen bowel sounds positive on auscultation, soft nondistended nontender no guarding, no rigidity Skin no active skin rash Neurology-4/5 strength to plantar flexion and dorsiflexion of foot. difficult to assess strength at knee and hip 2/2 pain Extremity- trace pedal edema able to move all 4 extremities Psychiatry - patient is not confused or agitated cooperated during physical examination Progress Results/Orders Results/Orders Completed Orders - ECTOR BRAVO MD Dexamethasone Inj (Decadron 10mg/Ml Inj) (01/15/25 09:11) Ketorolac Trometh 30mg/Ml Vial (Toradol (01/15/25 09:15) Oxycodone Immed Release Tablet (Oxy Ir T (01/15/25 09:30) Medications Received in ER Medications (Trade) Dose Ordered Sig/Teresita Route PRN Reason Start Time Stop Time Status Last Admin Dose Admin (Decadron 10mg/ ml inj) 10 mg ONCE STAT PO 01/15/25 09:11 01/15/25 09:13 DC 01/15/25 09:25 10 MG (Toradol inj. 30mg/ml) 30 mg ONCE ONCE IM 01/15/25 09:15 01/15/25 09:16 DC 01/15/25 09:26 30 MG (OXY IR tablet) 5 mg ONCE ONCE PO 01/15/25 09:30 01/15/25 09:31 DC 01/15/25 10:02 5 MG Vital Signs 01/15/25 01/15/25 01/15/25 01/15/25 08:48 08:58 09:03 09:26 Temp 98.5 98.5 Pulse 94 91 Resp 20 17 20 20 B/P (MAP) 125/76 119/75 (90) Pulse Ox 96 96 O2 Flow Rate 0 0 01/15/25 01/15/25 10:00 10:02 Pulse 85 Resp 20 20 B/P (MAP) 119/80 (93) Pulse Ox 97 O2 Flow Rate 0 Medical Decision Making Additional information obtaine: N/A Findings 34 year old male with what appears to be sciatic nerve pain exacerbation. Has follow up with a neurologist but hasn't seen yet. Reviewed his MRI results and there appear to be no significant mechanical impingement of his spine that would explain his symptoms. Improved after steroid, opioid, and NSAID. Return precautions. Differential Dx:Considerations: Other Differential Diagnosis Ddx = DJD, lumbar radiculopathy, sciatic nerve impingement, herniated disc Departure Disposition: HOME / SELF CARE / HOMELESS Impression: Primary Impression: Sciatica Condition: Stable Discharge Instructions: Sciatica Referrals: NO PRIMARY CARE PROVIDER (PCP) Education Educated: Patient Educated regarding: diagnosis, treatment, prognosis, need for follow up Signature Scribe Signature: . Attestation: . ECTOR BRAVO MD Jan 15, 2025 11:08
[2025-01-15 11:31] VITALS: BP 123/82; RESP 14; O2SAT 96
[2025-01-15] MEDS ORDERED: HYDR-3965 PO (11:32)
== END 2025-01-15 12:22 | disposition home or self-care (01) ==
LOC: ER 08:43
DX: M54.30 Sciatica, unspecified side (principal); F41.9 Anxiety disorder, unspecified; F32.A Depression, unspecified; F12.90 Cannabis use, unspecified, uncomplicated; Z88.1 Allergy status to other antibiotic agents; Z88.8 Allergy status to other drugs, medicaments and biological substances
CPT/HCPCS: 96372; 99283; J1100; J1885

== ENCOUNTER 2025-01-27 06:56 | Emergency (ER) | payer MEDICAID ==
[~2025-01-27] VITALS: Ht 170.2 cm; Wt 77.3 kg
[~2025-01-27 06:56] MED LIST changes: +GABA-530 PO
[2025-01-27 07:05] VITALS: BP 130/78; PULSE 100; O2SAT 99
--- NOTE | 2025-01-27 09:27 | Physician Documentation ---
History of Present Illness ~ Chief Complaint: Back Pain Stated Complaint: BACK PAIN A BLS Time Seen by MD: 09:08 OK to notify your PCP?: Yes Primary Medical Doctor: ARIAN LEONG Source: patient, old records Mode of Arrival: POV Exam Limitations: no limitations HPI This is a 34-year-old male who comes in complaining of acute on chronic low back pain with radicular pain down the right leg. The patient has been here multiple times for the same. He says he has a history of sciatica. He says he also has a herniated disc in his lumbar spine. He denies saddle paresthesias, urinary retention loss of bowel control. He states he has had some recent falls but does not think this is exacerbated this pain. He believes that has pain has gotten worse because he is out in his [place]. It is states that has primary care physician has a referrals for physical therapy, a spine surgeon and pain management however they are all currently pending. Medication Reconciliation Allergies: Coded Allergies: doxycycline (Verified Allergy, Severe, THROAT SWELLING, 12/23/24) Scheduled Dicyclomine Hcl* (Bentyl*), 1 CAP PO TID Famotidine (Famotidine), 1 TAB PO DAILY, (Reported) Gabapentin (Gabapentin), 3 CAP PO Q8H, (Reported) Scheduled PRN Hydrocodone Bit/Acetaminophen 5/325 MG ([place] 5/325 MG), 1-2 TAB PO Q6H PRN for pain Ibuprofen (Ibuprofen), 1 TAB PO Q6H PRN for pain, (Reported) Past Medical History Past Medical History: Gastritis, Chronic Back Pain, *PSYCH*, Anxiety, Depression Past Surgical History: noncontributory, orthopedic surgeries Patient History: Patient reports no known family medical history. Alcohol Use: Alcoholic Drug Use: marijuana Lives with: Mother Lives In: Home Occupation: unemployed Physical Exam Physical Exam Vital Signs: Temperature: 98.8, Source: Temporal, Heart Rate: 100, Respiratory Rate: 16, BP: 130/78, Pulse Oximetry: 99, Weight: 77.270 Oxygen Flow Rate: 0 Pulse Oximetry Reflects: adequate oxygenation General Appearance: alert, WD/WN, no apparent distress Back There is tenderness to palpation of the right lower paraspinal muscles of the lumbar spine. No midline step-off deformity or point tenderness Extremities: other (Positive right straight leg raise at 30.) Psychiatric: depressed affect Progress Results/Orders Results/Orders Completed Orders - JAIRO JOYNER Ketorolac Trometh 30mg/Ml Vial (Toradol (01/27/25 09:20) Hydrocodone/Apap 10/325 ([place] 10/325mg (01/27/25 09:20) Dexamethasone Inj (Decadron 10mg/Ml Inj) (01/27/25 09:16) Medications Received in ER Medications (Trade) Dose Ordered Sig/Teresita Route PRN Reason Start Time Stop Time Status Last Admin Dose Admin (Toradol inj. 30mg/ml) 30 mg ONCE ONCE IM 01/27/25 09:20 01/27/25 09:21 DC 01/27/25 09:39 30 MG ([place] 10/325mg tab) 1 tab ONCE ONCE PO 01/27/25 09:20 01/27/25 09:21 DC 01/27/25 09:38 1 TAB (Decadron 10mg/ ml inj) 10 mg ONCE STAT IM 01/27/25 09:16 01/27/25 09:18 DC 01/27/25 09:38 10 MG Vital Signs 01/27/25 01/27/25 01/27/25 07:05 09:38 09:39 Temp 98.8 Pulse 100 Resp 16 16 16 B/P (MAP) 130/78 Pulse Ox 99 O2 Flow Rate 0 Medical Decision Making Additional information obtaine: N/A Findings I gave the patient a shot of Toradol 30 mg IM, Decadron 10 mg IM and [place] p.o.. The patient has a seems much more comfortable. He has not no signs of focal neuro deficits and is already pending referrals to pain management, physical therapy and a neurosurgeon through the primary care physician. I will send him home with the bursa prednisone 60 mg once a day for the next four days, small amount of [place] and in his instruct him to continue to follow up with the primary care physician for outpatient referrals Differential Dx:Considerations: Musculoskeletal pain, Strain, Other Differential Diagnosis Lumbosacral radiculopathy. Sciatica. Disc herniation of the lumbar spine. Acute on chronic low back pain Departure Disposition: HOME / SELF CARE / HOMELESS Impression: Primary Impression: Lumbosacral radiculopathy Condition: Stable Discharge Instructions: Lumbosacral Radiculopathy Additional Instructions: Take the medications as prescribed and rest of the back. I suggest you follow up with your primary care physician and discuss a referral to an orthopedic spine surgeon or a neurosurgeon. Referrals: NO PRIMARY CARE PROVIDER (PCP) Prescriptions Prednisone* (Prednisone*) 20 Mg Tablet 3 TAB PO DAILY, #12 TAB Prov: JAIRO JOYNER 01/27/25 Hydrocodone Bit/Acetaminophen (Hydrocodone-[place] 10-325 Tablet) 10mg/325mg Tablet 1 TABLET PO Q6H PRN for moderate or severe pain 4-10, #20 TABLET Prov: JAIRO JOYNER 01/27/25 Signature Scribe Signature: No scribe Attestation: The note accurately reflects work and decisions made by me.Jairo BASILIO 01/27/25 10:30 JAIRO JOYNER Jan 27, 2025 09:27
[2025-01-27] MEDS: dexamethasone sod phosphate 10mg/ml inj IM STA (09:38)
[2025-01-27] MEDS: HYDROcodone/acetaminophen 10/325mg tab PO ONE (09:38)
[2025-01-27] MEDS: ketorolac trometh 30MG/ML vial 30 MG/ML VIAL IM ONE (09:39)
[2025-01-27] MEDS ORDERED: HYDR-3973 PO (10:28)
[2025-01-27] MEDS ORDERED: PRED20TA PO (10:28)
[2025-01-27 10:29] VITALS: RESP 16
[2025-01-27 10:41] VITALS: TEMP 98.8
== END 2025-01-27 10:42 | disposition home or self-care (01) ==
LOC: ER 06:57
DX: M54.17 Radiculopathy, lumbosacral region (principal); F41.9 Anxiety disorder, unspecified; F32.A Depression, unspecified; F12.90 Cannabis use, unspecified, uncomplicated; F10.90 Alcohol use, unspecified, uncomplicated; Y90.9 Presence of alcohol in blood, level not specified; Z87.19 Personal history of other diseases of the digestive system; Z88.1 Allergy status to other antibiotic agents; Z56.0 Unemployment, unspecified; Z79.899 Other long term (current) drug therapy; Z98.890 Other specified postprocedural states
CPT/HCPCS: 96372; 99284; J1100; J1885